=== PATIENT | male | born 1950 | race Caucasian/White ===

== ENCOUNTER 2019-10-25 04:19 | Emergency (ER) | payer OTHER ==
--- OUTSIDE RECORDS SUMMARY | 2019-10-25 04:20 | XMS REPORT ---
:1950 [facility] Address [address] [place] [address] Dr. [address] [place] [id number] Care Team Providers Name Role Phone Unavailable Unavailable Unavailable Problems This patient has no known problems. Allergies, Adverse Reactions, Alerts This patient has no known allergies or adverse reactions. Medications This patient has no known medications.
--- OUTSIDE RECORDS SUMMARY | 2019-10-25 04:21 | XMS REPORT ---
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 and devices Problem Pacemaker Z95.0 Active Problem Obstructive sleep apnea (adult) G47.33 Active (pediatric) Problem Adult general medical exam Z00.00 Active Problem Pneumococcal vaccine administered Z23 Active Problem Sick sinus syndrome I49.5 Active Problem Pure hypercholesterolemia E78.00 Active Medications Medication Code Code Instructions Start End Status Dosage System Date Date Simvastatin ND 92947897514 20MG daily Active TAKE ONE TABLET BY MOUTH AT BEDTIME Lexapro ND 63984300712 10 MG Orally Active 1 tablet Once a day Zyrtec Allergy ND 53056923308 10 MG Orally Active 1 tablet Once a day Results No Known Results Immunizations Vaccine Administration Date FluAD Oct 16, 2019 Summary Purpose eClinicalWorks Submission
--- OUTSIDE RECORDS SUMMARY | 2019-10-25 04:21 | XMS REPORT ---
:1950 Author Organization [employer] Care Team Providers Name Role Phone Johns, Na Provider Role Unavailable Allergies No Known Allergies Problems Problem Type Condition Code Onset Dates Condition Status Problem Allergic rhinitis J30.9 Active Problem Anxiety F41.9 Active Assessment Anxiety F41.9 Active Assessment Pure hypercholesterolemia E78.00 Active Problem Sick sinus syndrome I49.5 Active Problem Pure hypercholesterolemia E78.00 Active Problem Pacemaker Z95.0 Active Problem H/O TIA (transient ischemic attack) Z86.73 Active and stroke Problem Urticaria L50.9 Active Problem Adult general medical exam Z00.00 Active Problem Pneumococcal vaccine administered Z23 Active Medications Medication Code Code Instructions Start End Date Status Dosage System Date Simvastatin ND 69159770332 20MG daily Active TAKE ONE TABLET BY MOUTH AT BEDTIME Lexapro ND 07891393126 10 MG Orally Active 1 tablet Once a day Results No Known Results Summary Purpose eClinicalWorks Submission
--- OUTSIDE RECORDS SUMMARY | 2019-10-25 04:21 | XMS REPORT ---
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 and devices Problem Pacemaker Z95.0 Active Problem Obstructive sleep apnea (adult) G47.33 Active (pediatric) Problem Adult general medical exam Z00.00 Active Problem Pneumococcal vaccine administered Z23 Active Problem Sick sinus syndrome I49.5 Active Problem Pure hypercholesterolemia E78.00 Active Assessment H/O TIA (transient ischemic attack) Z86.73 Active and stroke Assessment Sick sinus syndrome I49.5 Active Assessment 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 machines and devices Assessment Obstructive sleep apnea (adult) G47.33 Active (pediatric) Assessment Anxiety F41.9 Active Assessment Pure hypercholesterolemia E78.00 Active Assessment Pacemaker Z95.0 Active Assessment Perianal itch L29.0 Active Problem Urticaria L50.9 Active Medications Medication Code Code Instructions Start End Status Dosage System Date Date Simvastatin ND 38639936250 20MG daily Active TAKE ONE TABLET BY MOUTH AT BEDTIME Nystatin [facility] 51802335112 [id number] UNIT/GM May 08, Jul 07, Active 1 application Externally 2018 2018 to affected Twice a day area Lexapro ND 37689850352 10 MG Orally Active 1 tablet Once a day Zyrtec Allergy [facility] 53308752521 10 MG Orally Active 1 tablet Once a day Results No Known Results Summary Purpose eClinicalWorks Submission
--- OUTSIDE RECORDS SUMMARY | 2019-10-25 04:21 | XMS REPORT ---
:1950 Author Organization eClinicalWorks Care Team Providers Name Role Phone Lion Nitesh Provider Role Unavailable Allergies No Known Allergies Problems Problem Type Condition Code Onset Dates Condition Status Problem Allergic rhinitis J30.9 Active Problem Anxiety F41.9 Active Problem Sick sinus syndrome I49.5 Active Problem Pure hypercholesterolemia E78.00 Active Problem Pacemaker Z95.0 Active Problem H/O TIA (transient ischemic attack) Z86.73 Active and stroke Problem Urticaria L50.9 Active Problem Adult general medical exam Z00.00 Active Problem Pneumococcal vaccine administered Z23 Active Assessment Sick sinus syndrome I49.5 Active Assessment Pacemaker Z95.0 Active Assessment Anxiety F41.9 Active Assessment H/O TIA (transient ischemic attack) Z86.73 Active and stroke Assessment Pure hypercholesterolemia E78.00 Active Medications Medication Code Code Instructions Start End Status Dosage System Date Date Simvastatin [facility] 84257338423 20MG daily Active TAKE ONE TABLET BY MOUTH AT BEDTIME Zyrtec Allergy ND 34108242324 10 MG Orally Active 1 tablet Once a day Lexapro ND 99076518515 10 MG Orally Active 1 tablet Once a day Results No Known Results Summary Purpose eClinicalWorks Submission
[2019-10-25] MEDS ORDERED: NA CHLORIDE 0.9% 1,000 ML ONE (04:56)
[2019-10-25] MEDS ORDERED: KETOROLAC 30 MG/ML INJ ONE (04:56)
[2019-10-25 05:18] LABS: Absolute Lymphocytes (CBC) 2.4 K/uL (0.7-4.9); Basophils % 0.6 % (0-1.3); Hematocrit 42.8 % (39.6-49.0); Lymphocytes % 42.2 % (15.3-44.8); MPV 9.4 fL (7.6-11.3); RBC Red Blood Cell Count 4.67 M/uL (4.33-5.43)
[2019-10-25 05:36] LABS: Albumin 3.6 g/dL (3.4-5.0); Bilirubin Direct 0.1 mg/dL (0-0.2); Bilirubin Total 0.4 mg/dL (0.2-1.0); Potassium 3.9 mmol/L (3.5-5.1); Protein, Total 6.7 g/dL (6.4-8.2)
[2019-10-25 07:03] LABS: Urine Blood NEGATIVE (NEG); Urine Glucose NEGATIVE (NEG); Urine Protein NEGATIVE (NEG); Urine Specific Gravity 1.025 (1.005-1.030)
[2019-10-25 07:06] LABS: Urine Bacteria <20 /HPF (NONE SEEN); Urine Culture Reflex Order NOT NEEDED; Urine Mucus SLIGHT /HPF (NONE SEEN); Urine RBC <5 /HPF (NONE SEEN)
--- NOTE | 2019-10-25 07:07 | ER ---
Nurse's Notes [facility] Name: Shyann Hardin Age: 68 yrs Sex: Male : 1950 Arrival Date: 10/25/2019 Time: 04:22 Bed 18 Private MD: Diagnosis: acute left lower quandrant abdominal pain Presentation: 10/25 04:36 Presenting complaint: Patient states: left upper and lower quadrant abd pain since 2200 ak1 last night. pt stated he had a very small BM with no relief from the pain. pt stated he has hx diverticulitis. pt denies N/V. pt c/o increased pain at 0330. Transition of care: patient was not received from another setting of care. Onset of symptoms was October 24, 2019. Risk Assessment: Do you want to hurt yourself or someone else? Patient reports no desire to harm self or others. Initial Sepsis Screen: Does the patient meet any 2 criteria? No. Patient's initial sepsis screen is negative. Does the patient have a suspected source of infection? No. Patient's initial sepsis screen is negative. Care prior to arrival: None. 04:36 Method Of Arrival: Ambulatory ak1 04:36 Acuity: AIRAM 3 ak1 Triage Assessment: 04:41 General: Appears in no apparent distress. well groomed, Behavior is calm, cooperative. ak1 Pain: Complains of pain in left upper quadrant and left lower quadrant. Historical: - Allergies: 04:40 PENICILLINS; ak1 - Home Meds: 04:40 escitalopram oxalate 10 mg Oral tab 1 tab once daily [Active]; Vitamin D3 5,000 unit ak1 Oral tab daily [Active]; simvastatin 20 mg Oral tab 1 tab once daily for Hypercholesterolemia [Active]; aspirin 325 mg Oral tab 1 tab once daily [Active]; - PMHx: 04:40 Anxiety; GERD; Sleep Apnea; High Cholesterol; TIA; ak1 04:41 Diverticulitis; ak1 - PSHx: 04:40 Tonsillectomy; Hernia repair; ak1 04:41 pacemaker; ak1 - Immunization history:: Adult Immunizations unknown. - Social history:: Smoking status: Patient/guardian denies using tobacco, Patient uses alcohol, but reports only rare drinking. - Ebola Screening: : No symptoms or risks identified at this time. - Family history:: not pertinent. - Hospitalizations: : No recent hospitalization is reported. Screenin:41 Abuse screen: Denies threats or abuse. Denies injuries from another. Nutritional ak1 screening: No deficits noted. Tuberculosis screening: No symptoms or risk factors identified. Fall Risk None identified. Assessment: 04:30 General: Appears in no apparent distress. comfortable, Behavior is calm, cooperative, cc3 appropriate for age. Pain: Complains of pain in left lower quadrant and left upper quadrant Pain currently is 3 out of 10 on a pain scale. Quality of pain is described as aching, Pain began 1 day ago. Neuro: Level of Consciousness is awake, alert, obeys commands, Oriented to person, place, time, situation, Appropriate for age. Cardiovascular: Denies chest pain, Heart tones S1 S2 present Capillary refill < 3 seconds in bilateral fingers Patient's skin is warm and dry. Respiratory: Airway is patent Respiratory effort is even, unlabored, Respiratory pattern is regular, symmetrical, Breath sounds are clear bilaterally. GI: Abdomen is round non-distended, Bowel sounds present X 4 quads. Abd is soft X 4 quads Abdomen is tender to palpation in left lower quadrant and left upper quadrant. : No signs and/or symptoms were reported regarding the genitourinary system. EENT: No signs and/or symptoms were reported regarding the EENT system. Derm: Skin is intact, is healthy with good turgor, Skin is pink, warm \T\ dry. normal. Musculoskeletal: Circulation, motion, and sensation intact. Range of motion: intact in all extremities. 05:18 Reassessment: Patient appears in no apparent distress at this time. Patient and/or cc3 family updated on plan of care and expected duration. Pain level reassessed. Patient is alert, oriented x 3, equal unlabored respirations, skin warm/dry/pink. 06:20 Reassessment: Patient appears in no apparent distress at this time. Patient and/or cc3 family updated on plan of care and expected duration. Pain level reassessed. Patient is alert, oriented x 3, equal unlabored respirations, skin warm/dry/pink. Patient denies pain at this time. Patient states feeling better. Patient states symptoms have improved. 07:01 Reassessment: Patient appears in no apparent distress at this time. Patient and/or cc3 family updated on plan of care and expected duration. Pain level reassessed. Patient is alert, oriented x 3, equal unlabored respirations, skin warm/dry/pink. 07:05 Reassessment: RECD REPORT FROM DIMPLE AGUILA. 68YO WM P/W LUQ PAIN. ALL CURRENT ORDERS bp COMPLETED, VS STABLE. Vital Signs: 04:36 BP 122 / 90; Pulse 66; Resp 16; Temp 97.5; Pulse Ox 98% on R/A; Weight 81.65 kg (R); ak1 Height 5 ft. 8 in. (172.72 cm) (R); Pain 4/10; 06:30 BP 117 / 74; Pulse 60; Resp 17 S; Pulse Ox 97% on R/A; cc3 07:33 BP 117 / 81; Pulse 59; Resp 16; Temp 98; Pulse Ox 97% ; bp 04:36 Body Mass Index 27.37 (81.65 kg, 172.72 cm) ak1 ED Course: 04:22 Patient arrived in ED. ag3 04:29 Dimple Maharaj is Primary Nurse. cc3 04:38 Triage completed. ak1 04:41 Arm band placed on Patient placed in an exam room, on a stretcher, on pulse oximetry, ak1 Patient notified of wait time. 04:41 Patient has correct armband on for positive identification. Placed in gown. Bed in low ak1 position. Call light in reach. Side rails up X 1. Adult w/ patient. Pulse ox on. NIBP on. 04:44 Inserted saline lock: 20 gauge in right forearm, using aseptic technique. Blood wh collected. 04:48 Levy Carreon MD is Attending Physician. wa 05:10 Radiology exam delayed due to lab results not completed at this time. (BUN/Creatinine). sj 05:55 CT Abd/Pelvis - IV Contrast Only In Process Unspecified. EDMS 07:04 Levy Laws MD is Referral Physician. wa 07:05 Garrick Ac, AYLA is Primary Nurse. bp 07:33 No provider procedures requiring assistance completed. IV discontinued, intact, bp bleeding controlled, No redness/swelling at site. Pressure dressing applied. Administered Medications: 04:55 Drug: TORadol 30 mg Route: IVP; Site: right forearm; cc3 07:33 Follow up: Response: No adverse reaction bp 04:55 Drug: NS 0.9% 1000 ml Route: IV; Rate: 1 bolus; Site: right forearm; cc3 07:35 Follow up: IV Status: Completed infusion; IV Intake: 1000ml bp Intake: 07:35 IV: 1000ml; Total: 1000ml. bp Outcome: 07:06 Discharge ordered by . ted 07:35 Discharged to home ambulatory, with family. bp 07:35 Condition: stable 07:35 Discharge instructions given to patient, Instructed on discharge instructions, follow up and referral plans. medication usage, Demonstrated understanding of instructions, follow-up care, medications, Prescriptions given X 2. 07:36 Patient left the ED. bp Signatures: Dispatcher [employer] EDMS Ronit Meeks Amber RN RN ak1 Judah Elizabeth William, MD MD wa Peltier, Brian, RN RN Dimple Burgess cc3 Marianna Tellez ag3
--- NOTE | 2019-10-25 07:07 | EDPHYS ---
Physician Documentation [facility] Name: Shyann Hardin Age: 68 yrs Sex: Male : 1950 Arrival Date: 10/25/2019 Time: 04:22 Bed 18 Private MD: ED Physician Levy Carreon HPI: 10/25 06:03 This 68 yrs old Male presents to ER via Ambulatory with complaints of wa Abdominal Pain. 06:03 The patient presents with abdominal pain in the left lower quadrant. Onset: The wa symptoms/episode began/occurred last night. The symptoms do not radiate. Associated signs and symptoms: none. The symptoms are described as achy. Modifying factors: The symptoms are alleviated by nothing, the symptoms are aggravated by nothing. Severity of pain: At its worst the pain was mild in the emergency department the pain is unchanged. The patient has experienced a previous episode, h/o diverticulitis. The patient has not recently seen a physician. denies groin or testicular pain. Historical: - Allergies: 04:40 PENICILLINS; ak1 - Home Meds: 04:40 escitalopram oxalate 10 mg Oral tab 1 tab once daily [Active]; Vitamin D3 5,000 unit ak1 Oral tab daily [Active]; simvastatin 20 mg Oral tab 1 tab once daily for Hypercholesterolemia [Active]; aspirin 325 mg Oral tab 1 tab once daily [Active]; - PMHx: 04:40 Anxiety; GERD; Sleep Apnea; High Cholesterol; TIA; ak1 04:41 Diverticulitis; ak1 - PSHx: 04:40 Tonsillectomy; Hernia repair; ak1 04:41 pacemaker; ak1 - Immunization history:: Adult Immunizations unknown. - Social history:: Smoking status: Patient/guardian denies using tobacco, Patient uses alcohol, but reports only rare drinking. - Ebola Screening: : No symptoms or risks identified at this time. - Family history:: not pertinent. - Hospitalizations: : No recent hospitalization is reported. ROS: 06:05 Constitutional: Negative for fever, chills, and weight loss, Eyes: Negative for injury, wa pain, redness, and discharge, ENT: Negative for injury, pain, and discharge, Neck: Negative for injury, pain, and swelling, Cardiovascular: Negative for chest pain, palpitations, and edema, Respiratory: Negative for shortness of breath, cough, wheezing, and pleuritic chest pain, Back: Negative for injury and pain, MS/Extremity: Negative for injury and deformity, Skin: Negative for injury, rash, and discoloration, Neuro: Negative for headache, weakness, numbness, tingling, and seizure, Psych: Negative for depression, anxiety, suicide ideation, homicidal ideation, and hallucinations. 06:05 Abdomen/GI: Positive for abdominal pain, Negative for vomiting, diarrhea. 06:05 : Negative for urinary symptoms, urinary frequency, pelvic pain, testicular pain Exam: 06:05 Constitutional: This is a well developed, well nourished patient who is awake, alert, wa and in no acute distress. Head/Face: Normocephalic, atraumatic. Eyes: Pupils equal round and reactive to light, extra-ocular motions intact. Lids and lashes normal. Conjunctiva and sclera are non-icteric and not injected. Cornea within normal limits. Periorbital areas with no swelling, redness, or edema. ENT: Nares patent. No nasal discharge, no septal abnormalities noted. Tympanic membranes are normal and external auditory canals are clear. Oropharynx with no redness, swelling, or masses, exudates, or evidence of obstruction, uvula midline. Mucous membranes moist. Neck: Trachea midline, no thyromegaly or masses palpated, and no cervical lymphadenopathy. Supple, full range of motion without nuchal rigidity, or vertebral point tenderness. No Meningismus. Cardiovascular: Regular rate and rhythm with a normal S1 and S2. No gallops, murmurs, or rubs. Normal PMI, no JVD. No pulse deficits. Respiratory: Lungs have equal breath sounds bilaterally, clear to auscultation and percussion. No rales, rhonchi or wheezes noted. No increased work of breathing, no retractions or nasal flaring. Back: No spinal tenderness. No costovertebral tenderness. Full range of motion. Male : Normal genitalia with no discharge or lesions. Skin: Warm, dry with normal turgor. Normal color with no rashes, no lesions, and no evidence of cellulitis. MS/ Extremity: Pulses equal, no cyanosis. Neurovascular intact. Full, normal range of motion. Neuro: Awake and alert, GCS 15, oriented to person, place, time, and situation. Cranial nerves II-XII grossly intact. Motor strength 5/5 in all extremities. Sensory grossly intact. Cerebellar exam normal. Normal gait. Psych: Awake, alert, with orientation to person, place and time. Behavior, mood, and affect are within normal limits. 06:05 Abdomen/GI: Inspection: abdomen appears normal, Bowel sounds: normal, Palpation: soft, in all quadrants, mild abdominal tenderness, in the left lower quadrant. 06:05 : Male external genitalia: normal, no discharge, no swelling, no tenderness, Bladder: is normal, non-distended. Vital Signs: 04:36 BP 122 / 90; Pulse 66; Resp 16; Temp 97.5; Pulse Ox 98% on R/A; Weight 81.65 kg (R); ak1 Height 5 ft. 8 in. (172.72 cm) (R); Pain 4/10; 06:30 BP 117 / 74; Pulse 60; Resp 17 S; Pulse Ox 97% on R/A; cc3 07:33 BP 117 / 81; Pulse 59; Resp 16; Temp 98; Pulse Ox 97% ; bp 04:36 Body Mass Index 27.37 (81.65 kg, 172.72 cm) ak1 MDM: 04:48 Patient medically screened. wa 06:06 Differential diagnosis: will r/op acute diverticulitis. pain control. pain med. CT. wa reassess. 06:58 Data reviewed: vital signs, nurses notes, lab test result(s), radiologic studies. Test wa interpretation: by ED physician or midlevel provider: labs noted within nml limits. UA negative. 06:59 Test interpretation: by ED physician or midlevel provider: CT abd pelvis: noted for wa diverticulosis. no diverticulitis. Response to treatment: the patient's symptoms have resolved after treatment. ED course: pain resolved. In a shared decision-making, pt opted for script to hold and take if pain persists. In case this is early diverticulitis and the scan has just not caught up with the infection. will script and advise GI f/u.. 10/25 04:49 Order name: Basic Metabolic Panel la 10/25 04:49 Order name: CBC with Diff 10/25 04:49 Order name: Hepatic Function; Complete Time: 06:07 10/25 04:49 Order name: Lipase; Complete Time: 06:07 10/25 04:49 Order name: Urine Microscopic Only la 10/25 04:50 Order name: Basic Metabolic Panel; Complete Time: 06:07 [facility] 10/25 04:49 Order name: IV Saline Lock; Complete Time: 04:52 la 10/25 04:49 Order name: Labs collected and sent; Complete Time: 04:52 la 10/25 04:49 Order name: Urine Dipstick-Ancillary (obtain specimen); Complete Time: 06:25 la 10/25 04:50 Order name: CT Abd/Pelvis - IV Contrast Only la 10/25 04:50 Order name: CBC with Automated Diff; Complete Time: 06:07 [facility] 10/25 06:08 Order name: Urine Dipstick--Ancillary (enter results) mw2 Administered Medications: 04:55 Drug: TORadol 30 mg Route: IVP; Site: right forearm; cc3 07:33 Follow up: Response: No adverse reaction bp 04:55 Drug: NS 0.9% 1000 ml Route: IV; Rate: 1 bolus; Site: right forearm; cc3 07:35 Follow up: IV Status: Completed infusion; IV Intake: 1000ml bp Disposition: 10/25/19 07:06 Discharged to Home. Impression: acute left lower quandrant abdominal pain. - Condition is Stable. - Prescriptions for Ibuprofen 600 mg Oral Tablet - take 1 tablet by ORAL route every 8 hours As needed take with food; 30 tablet. moxifloxacin 400 mg Oral tablet - take 1 tablet by ORAL route once daily; 7 tablet. - Medication Reconciliation Form, Thank You Letter, Antibiotic Education, Prescription Opioid Use form. - Follow up: Levy Laws MD; When: 2 - 3 days; Reason: Recheck today's complaints. - Problem is new. - Symptoms have improved. - Notes: begin taking the medication if pain persists. see the gastro doctor for further evaluation. return here immediately for rapidly worsening concerns for re-evaluation. you may choose to not take the antibiotics if this pain does not return as discussed with you. Signatures: Dispatcher [employer] EDMalissa Jenkins, RN RN ak1 Levy Carreon MD MD wa Peltier, Brian, RN RN Dimple Burgess cc3 Corrections: (The following items were deleted from the chart) 07:36 07:06 10/25/2019 07:06 Discharged to Home. Impression: acute left lower quandrant bp abdominal pain. Condition is Stable. Forms are Medication Reconciliation Form, Thank You Letter, Antibiotic Education, Prescription Opioid Use. Follow up: Levy Laws; When: 2 - 3 days; Reason: Recheck today's complaints. Problem is new. Symptoms have improved. wa
--- NOTE | 2019-10-25 10:28 | RAD REPORT ---
EXAM DESCRIPTION: CT Abdomen and Pelvis With Intravenous Contrast CLINICAL HISTORY: The patient is 68 years old and is Male; left lower quad abd pain TECHNIQUE: Axial computed tomography images of the abdomen and pelvis with intravenous contrast. S agittal and coronal reformatted images were created and reviewed. This CT exam was performed using one or more of the following dose reduction techniques: automated exposure control, adjustment of t he mA and/or kV according to patient size, and/or use of iterative reconstruction technique. COMPARISON: No relevant prior studies available. FINDINGS: Lung bases: Unremarkable. No mass. No consolidation. ABDOMEN: Liver: Unremarkable. No mass. Gallbladder and bile ducts: Unremarkable. No calcified stones. No ductal dilation. Pancreas: Unremarkable. No mass. No ductal dilation. Spleen: Unremarkable. No splenomegaly. Adrenals: Unremarkable. No mass. Kidneys and ureters: Unremarkable. No solid mass. No hydronephrosis. Stomach and bowel: Colonic diverticulosis without evidence of diverticulitis. No obstruction. PELVIS: Appendix: No findings to suggest acute appendicitis. Bladder: Mild bladder wall thickening may be secondary to underdistention, chronic outlet obstru ction or infectious cystitis. Reproductive: Unremarkable as visualized. ABDOMEN and PELVIS: Intraperitoneal space: Unremarkable. No free air. No significant fluid collection. Bones/joints: No acute fracture. No dislocation. Soft tissues: Small fat-containing right inguinal hernia. Vasculature: Unremarkable. No abdominal aortic aneurysm. Lymph nodes: Unremarkable. No enlarged lymph nodes. IMPRESSION: 1. Mild bladder wall thickening may be secondary to underdistention, chronic outlet ob struction or infectious cystitis. Otherwise no other acute abnormalities seen. 2. Colonic diverticulosis without evidence of diverticulitis. Electronically signed by: Jose De Jesus Hyde MD 10/25/2019 6:34 AM LATHE TURNER Due to temporary technical issues with the PACS/Fluency reporting system, reports are being signed by the in house radiologist as a courtesy to ensure prompt reporting. The interpreting radiologist is f leelaly responsible for the content of the report.
[2019-10-25 10:57] VITALS: O2SAT 97
[2019-10-25 10:59] VITALS: BP 117/81; TEMP 98
== END 2019-10-25 07:36 | disposition home or self-care (01) ==
LOC: ER 04:19
DX: R10.32 Left lower quadrant pain (principal); E78.00 Pure hypercholesterolemia, unspecified; F41.9 Anxiety disorder, unspecified; Z88.0 Allergy status to penicillin; Z95.0 Presence of cardiac pacemaker
CPT/HCPCS: 96361; 85025; 80048; 36415; 80076; 83690; 74177; 96374; 99284; Q9967; J7030; 81003; 81015

== ENCOUNTER 2021-09-29 15:48 | Emergency (ER) | payer OTHER ==
--- OUTSIDE RECORDS SUMMARY | 2021-09-29 15:51 | XMS REPORT | Continuity of Care Document ---
:1950 Author Organization [facility] t Address [address] [place] [address] Care Team Providers Name Role Phone MANDA Attending Clinician Unavailable CHERI Attending Clinician Unavailable CHERRI Attending Clinician Unavailable TIFFANIE ODONNELL Attending Clinician Unavailable TIFFANIE ODONNELL Attending Clinician Unavailable Payers Payer Name Policy Type Policy Number Effective Date Expiration Date S brayden [employer] CHOICE [id number] 2018 00:00:00 Problems This patient has no known problems. Allergies, Adverse Reactions, Alerts Allergy Allergy Status Severity Reaction(s) Onset Inactive Treating Comm ents Source Name Type Date Date Clinician PENICILL Drug Active ITCHING 2017-11 Univers INS Class 0-19 ity of 00:00: [address] PCN Adverse Active Info Not [facility] Reaction Available [facility] ent Clinics Medications Ordered Filled Start Stop Current Ordering Indication Dosage Frequency Signature Comments Components Source Medication Medication Date Date Medication? Clinician (SIG) Name Name Simvastatin Simvastatin Yes Na Johns TAKE ONE [facility] Lexapro Lexapro Yes Na Johns [address] [facility] Zyrte Zyrte Yes Na Johns [address] [facility] Allergy Allergy [facility] ent Clinics Immunizations Ordered Filled Immunization Date Status Comments Sourc e Immunization Name Name FluAD FluAD 2019-10-[address] [facility] - 00:[facility]:00 [facility] Prevnar 13 Prevnar 13 2018-03-[address] [facility] - -Pneumonia Vaccine -Pneumonia Vaccine 00:00:00 [facility] Procedures This patient has no known procedures. Encounters Start End Encounter Admission Attending Care Care Encounter Source Date/Time Date/Time Type Type Clinicians Facility Department ID 2022-02-23 2022-02-23 Outpatient Ryan HOLMAN [facility] [id number] Univers 13:40:00 13:40:00 CINDI [id number] ity o f [facility] 2021-07-28 2021-07-28 Outpatient R CHERI [facility] [id number] Univers 14:45:00 14:45:00 SCOTT [id number] ity [facility] 2021-07-28 2021-07-28 Outpatient Ryan ALONZO [facility] [id number] Univers 14:40:00 14:40:00 SCOTT ity [facility] 2021-06-04 2021-06-04 Outpatient [facility]MLC [facility] [id number] [facility] 2021-03-27 2021-03-27 Outpatient R CHERRI [facility] [id number] Univers 09:30:00 09:30:00 SHO [id number] [facility] 2021-03-27 2021-03-27 Outpatient R CHERRI [facility] [id number] Univers 09:30:00 09:30:00 SHO [facility] 2021-03-26 2021-03-26 Outpatient R [facility] [id number] Univers 12:00:00 12:00:00 [id number] ity [facility] 2021-03-24 2021-03-24 Outpatient R [facility] [id number] Univers 13:40:00 13:40:00 [id number] ity [facility] 2021-03-24 2021-03-24 Outpatient R [facility] [id number] Univers 13:40:00 13:40:00 ity [facility] 2021-03-24 2021-03-24 Outpatient R CHERI [facility] [id number] Univers 13:30:00 13:30:00 SCOTT ity [facility] 2021-03-09 2021-03-09 Outpatient R MANDA, [facility] [id number] Univers 09:40:00 09:40:00 CINDI [id number] ity o f [facility] 2021-03-09 2021-03-09 Outpatient R MANDA, [facility] [id number] Univers 09:40:00 09:40:00 CINDI ravi o f [facility] 2021-03-02 2021-03-02 Outpatient R BLAS PERLA [facility] [id number] Univers 13:00:00 13:00:00 PERLA ODONNELL [id number] [facility] 2021-03-02 2021-03-02 Outpatient Ryan BLAS PERLA [facility] [id number] Univers 13:00:00 13:00:00 PERLA ODONNELL [facility] 2021-01-17 2021-01-17 Outpatient [facility] [id number] Univers 10:45:00 10:45:00 [facility] 2020-12-20 2020-12-20 Outpatient [facility] [id number] Univers 10:40:00 10:40:00 [facility] 2020-12-17 2020-12-17 Outpatient [facility] [id number] [facility] 2020-12-02 2020-12-02 Outpatient [facility] [id number] [facility] 2020-10-21 2020-10-21 Outpatient [facility] [id number] [facility] 2020-09-23 2020-09-23 Outpatient R [facility] [id number] Univers 13:30:00 13:30:00 ity [facility] 2020-09-23 2020-09-23 Outpatient R [facility] [id number] Univers 13:30:00 13:30:00 ity [facility] 2020-09-05 2020-09-05 Outpatient [facility] [id number] Univers 09:00:00 09:00:00 [id number] ity of [facility] 2020-05-20 2020-05-20 [facility] [id number] 04:10:00 04:10:00 t [employer] [facility] 2020-05-13 2020-05-13 [facility] [id number] 10:40:00 10:40:00 t [employer] [facility] 2020-05-09 2020-05-09 Outpatient R [facility] [id number] Univers 09:15:00 09:15:00 [id number] ity of [facility] 2020-05-09 2020-05-09 Outpatient R [facility] [id number] Univers 09:15:00 09:15:00 ity [facility] 2020-04-09 2020-04-09 [facility] [id number] 16:45:00 16:45:00 [facility] Out[facility] Clin[facility] 2020-03-07 2020-03-07 Outpatient R [facility] [id number] Univers 09:00:00 09:00:00 [id number] ity of [facility] 2020-03-05 2020-03-05 Outpatient R MANDA, [facility] [id number] Univers 10:00:00 10:00:00 CINDI [id number] ity o f [facility] 2020-03-05 2020-03-05 Outpatient R MANDA, [facility] [id number] Univers 10:00:00 10:00:00 CINDI maldonadoy o f [facility] 2019-11-05 2019-11-05 [facility] [id number] 17:28:00 17:28:00 t [employer] [facility] Clin[facility] 2019-10-31 2019-10-31 [facility] [id number] 10:00:00 10:00:00 t [employer] [facility] 2019-10-16 2019-10-16 [facility] [id number] 10:00:00 10:00:00 t [employer] [facility] [place] [facility] Clin[facility] 2019-05-08 2019-05-08 [facility] [id number] 16:40:00 16:40:[address] [employer] [facility] [place] [facility] 2019-01-30 2019-01-30 [facility] [id number] 09:51:00 09:51:00 t [employer] [facility] [employer] [place] [facility] 2018-11-17 2018-11-17 [facility] [id number] 10:30:00 10:30:[address] [employer] [facility] [place] [facility] 2018-04-11 2018-04-11 [facility] [id number] 14:03:00 14:03:[address] [employer] [facility] [place] [facility] 2018-03-20 2018-03-20 [facility] [id number] 15:15:00 15:15:00 t [employer] [place] [facility] Results This patient has no known results.
--- NOTE | 2021-09-29 16:52 | RAD REPORT ---
EXAM DESCRIPTION: RAD - Foot Left 3 View - 09/29/2021 4:45 pm CLINICAL HISTORY: SWELLING COMPARISON: No comparisons FINDINGS: No acute fracture. No malalignment. No significant focal degenerative changes. IMPRESSION: No acute osseous abnormality involving the left foot.
--- NOTE | 2021-09-29 17:45 | EDPHYS ---
Physician Documentation [facility] Name: Shyann Hardin Age: 70 yrs Sex: Male : 1950 Arrival Date: 09/29/2021 Time: 16:19 Bed DX3 Private MD: ED Physician Geovany Elmore HPI: 09/29 17:42 This 70 yrs old Male presents to ER via Ambulatory with complaints of Foot rn Injury. 17:42 The patient presents with a crush injury, from a heavy object, an injury. The rn complaints affect the left foot. Onset: The symptoms/episode began/occurred today. Modifying factors: The symptoms are alleviated by elevation of extremity, the symptoms are aggravated by weight bearing, movement. Associated signs and symptoms: Pertinent positives: swelling, Pertinent negatives: fever, warmth, weakness. Severity of symptoms: At their worst the symptoms were mild, in the emergency department the symptoms have improved. The patient has not experienced similar symptoms in the past. The patient has not recently seen a physician. Patient reports dropped heavy object from tractor onto left foot. Reports mild swelling and mild pain about a 3 out of 10. Reports pain not terrible but just wanted to make sure was not broken. No other injuries. No open wounds.. Historical: - Allergies: 16:20 PENICILLINS; ll1 - PMHx: 16:20 Anxiety; Diverticulitis; GERD; High Cholesterol; Sleep Apnea; TIA; ll1 - PSHx: 16:20 hernia repair; pacemaker; ll1 - Immunization history:: Client reports receiving the 2nd dose of the Covid vaccine. - Social history:: Smoking status: Patient denies any tobacco usage or history of. - Family history:: not pertinent. - Hospitalizations: : No recent hospitalization is reported. ROS: 17:42 Constitutional: Negative for fever, chills, and weight loss, MS/Extremity: Positive for rn injury and swelling to left foot Skin: Positive bruising to left foot Neuro: Negative for numbness or tingling to left foot Exam: 17:42 Constitutional: This is a well developed, well nourished patient who is awake, alert, rn and in no acute distress. MS/ Extremity: Pulses equal, no cyanosis. Neurovascular intact. Full, normal range of motion. Mild swelling and ecchymosis to medial and distal left foot and great toe. No open wounds. Foot is soft. Vital Signs: 16:19 BP 118 / 72; Pulse 71; Resp 16; Temp 98.1; Pulse Ox 96% on R/A; Weight 79.38 kg; Height ll1 5 ft. 8 in. (172.72 cm); Pain 4/10; 16:19 Body Mass Index 26.61 (79.38 kg, 172.72 cm) ll1 MDM: 17:37 Patient medically screened. rn 17:42 Differential diagnosis: fracture. Data reviewed: vital signs, nurses notes, radiologic rn studies, plain films, and as a result, I will discharge patient. Test interpretation: by ED physician or midlevel provider: plain radiologic studies, X-ray left foot negative for fracture. Counseling: I had a detailed discussion with the patient and/or guardian regarding: the historical points, exam findings, and any diagnostic results supporting the discharge/admit diagnosis, radiology results, the need for outpatient follow up, to return to the emergency department if symptoms worsen or persist or if there are any questions or concerns that arise at home. Special discussion: I discussed with the patient/guardian in detail that at this point there is no indication for admission to the hospital. It is understood, however, that if the symptoms persist or worsen the patient needs to return immediately for re-evaluation. 09/29 16:22 Order name: Foot Left 3 View XRAY; Complete Time: 17:38 ll1 Administered Medications: No medications were administered Disposition Summary: 09/29/21 17:45 Discharge Ordered Location: Home rn Problem: new rn Symptoms: have improved rn Condition: Stable rn Diagnosis - Contusion of left foot rn Followup: rn - With: Private Physician - When: As needed - Reason: Recheck today's complaints, Re-evaluation by your physician Discharge Instructions: - Discharge Summary Sheet rn - Foot Contusion rn Forms: - Medication Reconciliation Form rn - Thank You Letter rn - Antibiotic heel turner - Prescription Opioid Use rn Signatures: Dispatcher [employer] EDGeovany Brock MD MD rn Lewis, Lynsay, RN RN ll1 Corrections: (The following items were deleted from the chart) 17:43 17:42 Constitutional: Negative for fever, chills, and weight loss, MS/Extremity: rn Positive for injury and swelling to left foot Skin: Positive bruising to left foot rn
--- NOTE | 2021-09-29 17:45 | ER ---
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 Gait steady. Coronavirus screen: Vaccine status: Patient reports receiving the 2nd dose of the covid vaccine. Client denies travel out of the [place] in the last 14 days. At this time, the client does not indicate any symptoms associated with coronavirus-19. Ebola Screen: Patient denies travel to an Ebola-affected area in the 21 days before illness onset. Initial Sepsis Screen: Does the patient meet any 2 criteria? No. Patient's initial sepsis screen is negative. Does the patient have a suspected source of infection? No. Patient's initial sepsis screen is negative. Risk Assessment: Do you want to hurt yourself or someone else? Patient reports no desire to harm self or others. Onset of symptoms was September 29, 2021. 16:19 Method Of Arrival: Ambulatory ll1 16:19 Acuity: AIRAM 4 ll1 Historical: - Allergies: 16:20 PENICILLINS; ll1 - PMHx: 16:20 Anxiety; Diverticulitis; GERD; High Cholesterol; Sleep Apnea; TIA; ll1 - PSHx: 16:20 hernia repair; pacemaker; ll1 - Immunization history:: Client reports receiving the 2nd dose of the Covid vaccine. - Social history:: Smoking status: Patient denies any tobacco usage or history of. - Family history:: not pertinent. - Hospitalizations: : No recent hospitalization is reported. Screenin:40 Abuse screen: Denies threats or abuse. Denies injuries from another. Nutritional ss screening: No deficits noted. Tuberculosis screening: Never had TB. Fall Risk None identified. Assessment: 17:40 General: Appears in no apparent distress. comfortable, Behavior is calm, cooperative, ss Denies fever, feeling ill, fatigue, chills. Pain: Complains of pain in left first toe Pain currently is 5 out of 10 on a pain scale. Quality of pain is described as tender. Neuro: Level of Consciousness is awake, alert, obeys commands, Oriented to person, place, time, situation. Cardiovascular: Pulses are palpable in right dorsalis pedis artery and left dorsalis pedis artery. Respiratory: Airway is patent Respiratory effort is even, unlabored, Respiratory pattern is regular, symmetrical. Derm: Skin is pink, warm \T\ dry. normal. Musculoskeletal: Swelling present in left first toe. Vital Signs: 16:19 BP 118 / 72; Pulse 71; Resp 16; Temp 98.1; Pulse Ox 96% on R/A; Weight 79.38 kg; Height ll1 5 ft. 8 in. (172.72 cm); Pain 4/10; 16:19 Body Mass Index 26.61 (79.38 kg, 172.72 cm) ll1 ED Course: 16:19 Patient arrived in ED. ll1 16:20 Triage completed. ll1 16:21 Arm band placed on Patient placed in an exam room, on a stretcher. ll1 16:45 Foot Left 3 View XRAY In Process Unspecified. EDMS 17:37 Geovany Elmore MD is Attending Physician. rn 17:39 Josefa Fraser, AYLA is Primary Nurse. ss 17:40 Patient has correct armband on for positive identification. Bed in low position. Call ss light in reach. 17:40 No provider procedures requiring assistance completed. Patient did not have IV access ss during this emergency room visit. Administered Medications: No medications were administered Outcome: 17:45 Discharge ordered by . rn 17:49 Discharged to home ambulatory. ss 17:49 Condition: good 17:49 Discharge instructions given to patient, Instructed on discharge instructions, follow up and referral plans. Demonstrated understanding of instructions, follow-up care. 17:50 Patient left the ED. ss Signatures: Dispatcher [employer] EDKY Geovany Elmore MD MD rn Smirch, Shelby, RN RN ss Lewis, Lynsay, RN RN ll1
[2021-09-29 18:30] VITALS: BP 118/72; TEMP 98.1; O2SAT 96
== END 2021-09-29 17:50 | disposition home or self-care (01) ==
LOC: ER 15:48
DX: S90.32XA Contusion of left foot, initial encounter (principal); I10 Essential (primary) hypertension; Z88.0 Allergy status to penicillin; Z95.0 Presence of cardiac pacemaker
CPT/HCPCS: 99283

== ENCOUNTER 2023-05-27 09:32 | Emergency (ER) | payer OTHER ==
--- OUTSIDE RECORDS SUMMARY | 2023-05-27 09:45 | XMS REPORT | Continuity of Care Document ---
:1950 Author Organization [facility] t Address [address] [place] [address] [address] [place] [address] Care Team Providers Name Role Phone RODRIGUEZ, ROSA ISELA Primary Care Physician Unavailable Ronnell Seymour Attending Clinician Unavailable Rosa Isela Rodriguez L Attending Clinician Unavailable DANA HOLMAN Attending Clinician Unavailable SCOTT ALONZO Attending Clinician Unavailable Dana Holman MD Attending Clinician Doctor Unassigned, [place] Attending Clinician Unavailable SHO HARLEY Attending Clinician Unavailable PERLA ODONNELL Attending Clinician Unavailable PERLA ODONNELL Attending Clinician Unavailable RONNELL SEYMOUR Admitting Clinician Unavailable SCOTT ALONZO Admitting Clinician Unavailable DANA HOLMAN Admitting Clinician Unavailable Payers Payer Name Policy Type Policy Number Effective Date Expiration Date S brayden [place] [id number] 2021 HEALTHCARE 00:00:00 [facility] [id number] Common HEALTHCARE [facility] HUMANA MEDICARE C1 [id number] 2018 Common 00:00:00 [facility] Problems Condition Condition Condition Status Onset Resolution Last Treating Co mments Source Name Details Category Date Date Treatment Clinician Date No known No known Disease Unive rs active active ity of problems problems [facility] Urticaria Urticaria Problem Com mon [facility] Allergic Allergic Problem Commo n rhinitis rhinitis [facility] Anxiety Anxiety Problem Common [facility] Requires Pneumococc Problem Com mon vaccinatio al vaccine Sp oumar n administer - [facility] ed [facility] History of H/O TIA Problem Comm on cerebrovas (transient Sp oumar cular ischemic - [facility]I accident attack) without and stroke [facility] Medical [facility] [id number] Sick sinus Problem Com mon syndrome [facility] [id number] Pacemaker Problem Com mon [facility] Dependence Dependence Problem C ommon on on other [facility] enabling enabling [facility] machine or machines device 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 Sp oumar sm - [facility] [id number] Encounter Problem Com mon for Spirit prostate - [facility] cancer [facility] Obstructiv Obstructiv Problem C ommon e sleep e sleep Spirit apnea apnea - [facility] syndrome (adult) (pediatric [facility] ) [facility] Allergies, Adverse Reactions, Alerts Allergy Allergy Status Severity Reaction(s) Onset Inactive Treating Comm ents Source Name Type Date Date Clinician Penicill Propensi Active Itching 2017-11 Unive rs ins ty to 0-19 ity of adverse 00:00: [place] reaction 00 Medical s Branch PENICILL Drug Active ITCHING 2017-11 Univers INS Class 0-19 ity of 00:00: [place] 00 Medical Branch Penicill Propensi Active Itching 2017-11 Unive rs ins ty to 0-19 ity of adverse 00:00: [place] reaction 00 Medical s Branch Penicill Propensi Active Method i ins ty to 9-15 st adverse 00:00: Hospita reaction 00 l s to drug 0 Drug Active Unknown Common allergy [facility] Family History Family Member Diagnosis Comments Start Date Stop Date Source Paternal grandfather [facility] Paternal grandmother Colon cancer [facility] father [facility] Natural father Hypertension [facility] Maternal grandfather [facility] Maternal grandmother Diabetes [facility] Natural mother Heart disease [facility] Natural [facility] Social History Social Habit Start Date Stop Date Quantity Comments Source History of Tobacco [facility] Use [facility] Gender identity [facility] Sexual orientation [facility] Exposure to 2023-02-14 2023-02-[address] [facility]-CoV-2 (event) 00:00:00 09:39:00 [facility] Tobacco use and 2023-02-24 2023-02-24 Smokeless Universit y of exposure 00:00:00 00:00:00 tobacco non-user [facility] Alcohol intake 2017-07-26 2017-07-26 Current Islam 00:00:00 00:00:00 non-drinker of Hospital alcohol (finding) History of Social 2017-05-15 2017-05-[address] function 00:00:00 00:00:00 Hospital Sex [birth year] Islam 00:00:00 00:00:00 Hospital Smoking Status Start Date Stop Date Source Never smoked tobacco [facility] Medications Ordered Filled Start Stop Current Ordering Indication Dosage Frequency Signature Comments Components Source Medication Medication Date Date Medication? Clinician (SIG) Name Name Scopolamine Scopolamine 2021-11- No Scopolamin 1 MG/3DAYS 1 MG/3DAYS 0-05 09-17 e 1 00:00: 00:00 MG/3DAYS 00 :00 Scopolamine Scopolamine 2021-11- No Scopolamin 1 MG/3DAYS 1 MG/3DAYS 0-05 09-17 e 1 00:00: 00:00 MG/3DAYS 00 :00 Scopolamine Scopolamine 2021-11- No Scopolamin 1 MG/3DAYS 1 MG/3DAYS 0-05 09-17 e 1 00:00: 00:00 MG/3DAYS 00 :00 cetirizine 2020-0 Yes 10mg Take 10 mg U nivers (ZYRTEC) 10 4-26 by mouth ity of mg tablet 09:35: [place] [address] [place] [address] Branch cetirizine 2020- Yes 10mg Take 10 mg U nivers (ZYRTEC) 10 4-26 by mouth ity of mg tablet 09:35: as needed. [address] cetirizine 2020-0 Yes 10mg Take 10 mg U nivers (ZYRTEC) 10 4-26 by mouth ity of mg tablet 09:35: as needed. [address] cetirizine 2020-0 Yes 10mg Take 10 mg U nivers (ZYRTEC) 10 4-26 by mouth ity of mg tablet 09:35: as needed. [address] cetirizine 2020-0 Yes 10mg Take 10 mg U nivers (ZYRTEC) 10 4-26 by mouth ity of mg tablet 09:35: as needed. [address] cetirizine 2020-0 Yes 10mg Take 10 mg U nivers (ZYRTEC) 10 4-26 by mouth ity of mg tablet 09:35: as needed. [address] ibuprofen 2020-0 Yes 200mg Take 200 Uni vers 200 mg 4-19 mg by ity of tablet 13:26: mouth [place] 09 every 6 Medical (six) Branch hours as needed. ibuprofen 2020-0 Yes 200mg Take 200 Uni vers 200 mg 4-19 mg by ity of tablet 13:26: mouth [place] 09 every 6 Medical (six) Branch hours as needed. ibuprofen 2020-0 Yes 200mg Take 200 Uni vers 200 mg 4-19 mg by ity of tablet 13:26: mouth [place] 09 every 6 Medical (six) Branch hours as needed. ibuprofen 2020-0 Yes 200mg Take 200 Uni vers 200 mg 4-19 mg by ity of tablet 13:26: mouth [place] 09 every 6 Medical (six) Branch hours as needed. ibuprofen 202-0 Yes 200mg Take 200 Uni vers 200 mg 4-19 mg by ity of tablet 13:26: mouth [place] 09 every 6 Medical (six) Branch hours as needed. ibuprofen 2021-0 Yes 200mg Take 200 Uni vers 200 mg 4-19 mg by ity of tablet 13:26: mouth [place] 09 every 6 Medical (six) Branch hours as needed. escitalopra 2020-0 Yes 10mg Take 10 mg Univers m oxalate 4-19 by mouth ity of 10 mg 13:22: daily. [place] tablet 13 [facility] Branch aspirin 81 2020-0 Yes 81mg Take 81 mg U nivers mg chewable 4-19 by mouth ity of tablet 13:22: daily. [address] Cholecalcif 0 Yes Take by Uni vers brianne, 4-19 mouth ity of Vitamin D3, 13:22: daily. [place] (VITAMIN 13 Medical D3) 5,000 Branch unit tablet escitalopra Yes 10mg Take 10 mg Univers m oxalate 4-19 by mouth ity of 10 mg 13:22: daily. [place] tablet 13 [facility] Branch aspirin 81 0 Yes 81mg Take 81 mg U nivers mg chewable 4-19 by mouth ity of tablet 13:22: daily. [address] Cholecalcif Yes Take by Uni vers brianne, 4-19 mouth ity of Vitamin D3, 13:22: daily. [place] (VITAMIN 13 Medical D3) 5,000 Branch unit tablet escitalopra Yes 10mg Take 10 mg Univers m oxalate 4-19 by mouth ity of 10 mg 13:22: daily. [address] aspirin 81 0 Yes 81mg Take 81 mg U nivers mg chewable 4-19 by mouth ity of tablet 13:22: daily. [address] Cholecalcif Yes Take by Uni vers brianne, 4-19 mouth ity of Vitamin D3, 13:22: daily. [place] (VITAMIN 13 Medical D3) 5,000 Branch unit tablet escitalopra Yes 10mg Take 10 mg Univers m oxalate 4-19 by mouth ity of 10 mg 13:22: daily. [facility] 13 [facility] aspirin 81 0 Yes 81mg Take 81 mg U nivers mg chewable 4-19 by mouth ity of tablet 13:22: daily. [address] Cholecalcif 0 Yes Take by Uni vers brianne, 4-19 mouth ity of Vitamin D3, 13:22: daily. [place] (VITAMIN 13 Medical D3) 5,000 Branch unit tablet escitalopra Yes 10mg Take 10 mg Univers m oxalate 4-19 by mouth ity of 10 mg 13:22: daily. [facility] 13 [facility] aspirin 81 0 Yes 81mg Take 81 mg U nivers mg chewable 4-19 by mouth ity of tablet 13:22: daily. [address] Cholecalcif Yes Take by Uni vers brianne, 4-19 mouth ity of Vitamin D3, 13:22: daily. [place] (VITAMIN 13 Medical D3) 5,000 Branch unit tablet escitalopra Yes 10mg Take 10 mg Univers m oxalate 03-02 by mouth ity of 10 mg 13:22: daily. [facility] 13 [facility] aspirin 81 Yes 81mg Take 81 mg U nivers mg chewable 03-02 by mouth ity of tablet 13:22: daily. [address] Cholecalcif Yes Take by Uni vers brianne, 4-19 mouth ity of Vitamin D3, 13:22: daily. [place] (VITAMIN 13 Medical D3) 5,000 Branch unit tablet simvastatin 2017-11 Yes 20mg Take 1 Univ ers 20 mg 0-19 tablet by ity of tablet 00:00: mouth at [place] [address] bedtime. [facility] Branch simvastatin 2017-11 Yes 20mg Take 1 Univ ers 20 mg 0-19 tablet by ity of tablet 00:00: mouth at [place] [address] bedtime. [facility] Branch simvastatin 2017-11 Yes 20mg Take 1 Univ ers 20 mg 0-19 tablet by ity of tablet 00:00: mouth at [place] [address] bedtime. [facility] Branch simvastatin 2017-11 Yes 20mg Take 1 Univ ers 20 mg 0-19 tablet by ity of tablet 00:00: mouth at [place] [address] bedtime. [facility] Branch simvastatin 2017-11 Yes 20mg Take 1 Univ ers 20 mg 0-19 tablet by ity of tablet 00:00: mouth at [place] [address] bedtime. [facility] Branch simvastatin 2017-11 Yes 20mg Take 1 Univ ers 20 mg 0-19 tablet by ity of tablet 00:00: mouth at [place] [address] bedtime. [facility] Branch cholecalcif Yes 1000U QD Take 1,000 Methodi brianne, 9-[address] vitamin D3, 11:23: mouth Hospi ta (cholecalci 15 daily. l ferol) 1,000 unit tablet aspirin Yes 81mg QD Take 81 mg Meth tone (ECOTRIN) 9-[address] 81 MG 11:22: daily. Hospita enteric 22 l coated tablet escitalopra Yes Method i m (LEXAPRO) 6-13 st 10 MG 00:00: Hospita tablet 00 l Simvastatin Simvastatin Yes Na Rodriguez TAKE ONE Common TABLET BY Spirit MOUTH AT - [facility] BEDTIME [facility] Lexapro Lexapro Yes Na Rodriguez 1 tablet Co mmon [facility] Zyrtec Zyrtec Yes Na Rodriguez 1 tablet Comm on Allergy Allergy [facility] Lexapro 10 Lexapro 10 No 1{table QD Lexapro 10 MG MG t} MG Simvastatin Simvastatin No QD Simvastati 20MG 20MG n 20MG Simvastatin Simvastatin No Simvastati 20 MG 20 MG n 20 MG ZyrTEC ZyrTEC No 1{table QD ZyrTEC Allergy 10 Allergy 10 t} Allergy 10 MG MG MG Escitalopra Escitalopra No Escitalopr m Oxalate m Oxalate am Oxalate 10 MG 10 MG 10 MG Lexapro 10 Lexapro 10 No 1{table QD Lexapro 10 MG MG t} MG Simvastatin Simvastatin No Simvastati 20 MG 20 MG n 20 MG ZyrTEC ZyrTEC No 1{table QD ZyrTEC Allergy 10 Allergy 10 t} Allergy 10 MG MG MG Simvastatin Simvastatin No QD Simvastati 20MG 20MG n 20MG ZyrTEC ZyrTEC No 1{table QD ZyrTEC Allergy 10 Allergy 10 t} Allergy 10 MG MG MG Lexapro 10 Lexapro 10 No 1{table QD Lexapro 10 MG MG t} MG Simvastatin Simvastatin No 1{table QD Simvastati 20 MG 20 MG t_in_th n 20 MG e_eveni ng} Escitalopra Escitalopra No 1{table QD Escitalopr m Oxalate m Oxalate t} am Oxalate 10 MG 10 MG 10 MG Simvastatin Simvastatin No QD Simvastati 20MG 20MG n 20MG Escitalopra Escitalopra No Escitalopr m Oxalate m Oxalate am Oxalate 10 MG 10 MG 10 MG ZyrTEC ZyrTEC No 1{table QD ZyrTEC Allergy 10 Allergy 10 t} Allergy 10 MG MG MG Simvastatin Simvastatin No Simvastati 20 MG 20 MG n 20 MG Lexapro 10 Lexapro 10 No 1{table QD Lexapro 10 MG MG t} MG Simvastatin Simvastatin No QD Simvastati 20MG 20MG n 20MG ZyrTEC ZyrTEC No 1{table QD ZyrTEC Allergy 10 Allergy 10 t} Allergy 10 MG MG MG ZyrTEC ZyrTEC No 1{table QD Allergy 10 Allergy 10 t} MG MG Lexapro 10 Lexapro 10 No 1{table QD MG MG t} Simvastatin Simvastatin No QD 20MG 20MG ZyrTEC ZyrTEC No 1{table QD ZyrTEC Allergy 10 Allergy 10 t} Allergy 10 MG MG MG Lexapro 10 Lexapro 10 No 1{table QD Lexapro 10 MG MG t} MG Simvastatin Simvastatin No QD Simvastati 20MG 20MG n 20MG ZyrTEC ZyrTEC No 1{table QD ZyrTEC Allergy 10 Allergy 10 t} Allergy 10 MG MG MG Lexapro 10 Lexapro 10 No 1{table QD Lexapro 10 MG MG t} MG Simvastatin Simvastatin No QD Simvastati 20MG 20MG n 20MG Escitalopra Escitalopra No Escitalopr m Oxalate m Oxalate am Oxalate 10 MG 10 MG 10 MG Simvastatin Simvastatin No Simvastati 20 MG 20 MG n 20 MG ZyrTEC ZyrTEC No 1{table QD ZyrTEC Allergy 10 Allergy 10 t} Allergy 10 MG MG MG Escitalopra Escitalopra No Escitalopr m Oxalate m Oxalate am Oxalate 10 MG 10 MG 10 MG ZyrTEC ZyrTEC No 1{table QD ZyrTEC Allergy 10 Allergy 10 t} Allergy 10 MG MG MG Simvastatin Simvastatin No Simvastati 20 MG 20 MG n 20 MG Escitalopra Escitalopra No Escitalopr m Oxalate m Oxalate am Oxalate 10 MG 10 MG 10 MG Immunizations Ordered Filled Immunization Date Status Comments Sourc e Immunization Name Name FLUZONE HIGH DOSE FLUZONE HIGH DOSE 2022-09-14 Completed [facility] - OVER 65 OVER 65 16:44:00 [facility] FLUZONE HIGH DOSE FLUZONE HIGH DOSE 2022-09-14 Completed [facility] - OVER 65 OVER 65 16:44:00 [facility] FLUZONE HIGH DOSE FLUZONE HIGH DOSE 2022-09-14 Completed [facility] - OVER 65 OVER 65 16:44:00 [facility] Influenza Virus 2022-03-17 Completed Universit y of Vaccine,quad 00:00:00 [facility] Im,preserve Free Branch 65+ Influenza Virus 2022-03-17 Completed Universit y of Vaccine,quad 00:00:00 [place] [facility] Im,preserve Free Branch 65+ Influenza Virus 2022-03-17 Completed Universit y of Vaccine,quad 00:00:00 [place] [facility] Im,preserve Free Branch 65+ Influenza Virus 2022-03-17 Completed Universit y of Vaccine,quad 00:00:00 [place] Med[facility] Im,preserve Free Branch 65+ Influenza Virus 2022-03-17 Completed Universit y of Vaccine,quad 00:00:00 [place] Med[facility] l Im,preserve Free Branch 65+ Influenza Virus 2022-03-17 Completed Universit y of Vaccine,quad 00:00:00 [place] Medica l Im,preserve Free Branch 65+ SARS-COV-2 COVID-19 2021-09-24 Completed Unive rsity of MODERNA VACCINE 00:00:00 [place] Med ical Branch SARS-COV-2 COVID-19 2021-09-24 Completed Unive rsity of MODERNA 12+ YRS 00:00:00 [place] Med ical VACCINE Branch SARS-COV-2 COVID-19 2021-09-24 Completed Unive rsity of MODERNA 12+ YRS 00:00:00 [place] Med ical VACCINE Branch SARS-COV-2 COVID-19 2021-09-24 Completed Unive rsity of MODERNA 12+ YRS 00:00:00 [place] Med ical VACCINE Branch SARS-COV-2 COVID-19 2021-09-24 Completed Unive rsity of MODERNA 12+ YRS 00:00:00 [place] Med ical VACCINE Branch SARS-COV-2 COVID-19 2021-09-24 Completed Unive rsity of MODERNA 12+ YRS 00:00:00 [place] Med ical VACCINE Branch SARS-COV-2 COVID-19 2021-01-17 Completed Unive rsity of MODERNA VACCINE 00:00:00 [place] Med ical Branch SARS-COV-2 COVID-19 2021-01-17 Completed Unive rsity of MODERNA 12+ YRS 00:00:00 [place] Med ical VACCINE Branch SARS-COV-2 COVID-19 2021-01-17 Completed Unive rsity of MODERNA 12+ YRS 00:00:00 [place] Med ical VACCINE Branch SARS-COV-2 COVID-19 2021-01-17 Completed Unive rsity of MODERNA 12+ YRS 00:00:00 [place] Med ical VACCINE Branch SARS-COV-2 COVID-19 2021-01-17 Completed Unive rsity of MODERNA 12+ YRS 00:00:00 [place] Med ical VACCINE Branch SARS-COV-2 COVID-19 2021-01-17 Completed Unive rsity of MODERNA 12+ YRS 00:00:00 [place] Med ical VACCINE Branch SARS-COV-2 COVID-19 2020-12-20 Completed Unive rsity of MODERNA VACCINE 00:00:00 [place] Med ical Branch SARS-COV-2 COVID-19 2020-12-20 Completed Unive rsity of MODERNA 12+ YRS 00:00:00 [place] Med ical VACCINE Branch SARS-COV-2 COVID-19 2020-12-20 Completed Unive rsity of MODERNA 12+ YRS 00:00:00 [place] Med ical VACCINE Branch SARS-COV-2 COVID-19 2020-12-20 Completed Unive rsity of MODERNA 12+ YRS 00:00:00 [place] Med ical VACCINE Branch SARS-COV-2 COVID-19 2020-12-20 Completed Unive rsity of MODERNA 12+ YRS 00:00:00 [place] [facility] ical VACCINE Branch SARS-COV-2 COVID-19 2020-12-20 Completed Unive rsity of MODERNA 12+ YRS 00:00:00 [place] Med ical VACCINE Branch FluAD FluAD 2019-10-16 Completed [facility] - 10:10:00 [facility] FluAD FluAD 2019-10-16 Completed [facility] - 10:10:00 [facility] FluAD FluAD 2019-10-16 Completed [facility] - 10:10:00 [facility] FluAD FluAD 2019-10-16 Completed [facility] - 10:10:00 [facility] FluAD FluAD 2019-10-16 Completed [facility] - 10:10:00 [facility] FluAD FluAD 2019-10-16 Completed [facility] - 10:10:00 [facility] FluAD FluAD 2019-10-16 Completed [facility] - 10:10:00 [facility] FluAD FluAD 2019-10-16 Completed [facility] - 10:10:00 [facility] FluAD FluAD 2019-10-16 Completed [facility] - 10:10:00 [facility] FluAD FluAD 2019-10-16 Completed [facility] - 10:10:00 [facility] FluAD FluAD 2019-10-16 Completed [facility] - 00:00:00 [facility] Prevnar 13 Prevnar 13 2018-03-20 Completed [facility] - -Pneumonia Vaccine -Pneumonia Vaccine 16:41:00 [facility] Prevnar 13 Prevnar 13 2018-03-20 Completed [facility] - -Pneumonia Vaccine -Pneumonia Vaccine 16:41:00 [facility] Prevnar 13 Prevnar 13 2018-03-20 Completed [facility] - -Pneumonia Vaccine -Pneumonia Vaccine 16:41:00 [facility] Prevnar 13 Prevnar 13 2018-03-20 Completed [facility] - -Pneumonia Vaccine -Pneumonia Vaccine 16:41:00 [facility] Prevnar 13 Prevnar 13 2018-03-20 Completed [facility] - -Pneumonia Vaccine -Pneumonia Vaccine 16:41:00 [facility] Prevnar 13 Prevnar 13 2018-03-20 Completed [facility] - -Pneumonia Vaccine -Pneumonia Vaccine 16:41:00 [facility] Prevnar 13 Prevnar 13 2018-03-20 Completed [facility] - -Pneumonia Vaccine -Pneumonia Vaccine 16:41:00 [facility] Prevnar 13 Prevnar 13 2018-03-20 Completed [facility] - -Pneumonia Vaccine -Pneumonia Vaccine 16:41:00 [facility] Prevnar 13 Prevnar 13 2018-03-20 Completed [facility] - -Pneumonia Vaccine -Pneumonia Vaccine 16:41:00 [facility] Prevnar 13 Prevnar 13 2018-03-20 Completed [facility] - -Pneumonia Vaccine -Pneumonia Vaccine 16:41:00 [facility] Prevnar 13 Prevnar 13 2018-03-20 Completed [facility] - -Pneumonia Vaccine -Pneumonia Vaccine 00:00:00 [facility] Vital Signs Vital Name Observation Time Observation Value Comments Source Systolic blood 2023-02-24 19:25:00 116 mm[Hg] Univer sity of pressure [facility] Diastolic blood 2023-02-24 19:25:00 63 mm[Hg] Unive rsity of pressure [facility] Heart rate 2023-02-24 19:25:00 63 /min Universi ty [facility] Respiratory rate 2023-02-24 19:25:00 19 /min Univ ersity of [facility] Body height 2023-02-24 19:25:00 170.2 cm Universi ty of [facility] Body weight 2023-02-24 19:25:00 80.241 kg Universi ty [facility] BMI 2023-02-24 19:25:00 27.71 kg/m2 Universi [facility] Oxygen saturation in 2023-02-24 19:25:00 95 /min [facility] Arterial blood by [facility] Pulse oximetry Branch height 2022-09-14 14:20:00 63.00 [in_i] Common [facility] weight 2022-09-14 14:20:00 178.6 [lb_av] [facility] temperature 2022-09-14 14:20:00 97.3 [degF] Common [facility] bmi 2022-09-14 14:20:00 31.63 kg/m2 [facility] oximetry 2022-09-14 14:20:00 95 % [facility] respiratory rate 2022-09-14 14:20:00 15 /min Comm on [facility] blood pressure 2022-09-14 14:20:00 119 mm[Hg] Common [facility] - systolic [facility] blood pressure 2022-09-14 14:20:00 80 mm[Hg] Common [facility] - diastolic [facility] height 2022-01-14 16:00:00 63.00 [in_i] Common [facility] weight 2022-01-14 16:00:00 174.8 [lb_av] [facility] temperature 2022-01-14 16:00:00 97.7 [degF] Common [facility] bmi 2022-01-14 16:00:00 30.96 kg/m2 [facility] oximetry 2022-01-14 16:00:00 96 % Common S pirit - [facility] respiratory rate 2022-01-14 16:00:00 16 /min Comm on [facility] - [facility] blood pressure 2022-01-14 16:00:00 112 mm[Hg] [facility] - systolic [facility] blood pressure 2022-01-14 16:00:00 75 mm[Hg] [facility] - diastolic [facility] Procedures Procedure Date / Time Performed Performing Clinician [facility] e ASSIGNMENT OF BENEFITS 2023-02-24 14:40:46 Doctor Unassigned, No [facility] Plan of Care Planned Activity Planned Date Details Comments Source Future Scheduled 2023-05-05 [facility] Test 10:00:26 malignant neoplasm of colon (procedure) [code = 591831997] Future Scheduled 2023-05-05 [facility] Test 10:00:26 malignant neoplasm of colon (procedure) [code = 266843497] Future Scheduled 2023-05-05 COVID-19 VACCINE (#1) [facility] Test 10:00:26 [code = COVID-19 VACCINE (#1)] Future Scheduled 2023-05-05 [facility] for [facility] Test 10:00:26 malignant neoplasm of colon (procedure) [code = 370581260] Future Scheduled 2023-05-05 SHINGLES VACCINES (1 [facility] 10:00:26 of 2) [code = SHINGLES VACCINES (1 of 2)] Future Scheduled 2023-05-05 65+ PNEUMOCOCCAL [facility] Test 10:00:26 VACCINE (1 - PCV) [code = 65+ PNEUMOCOCCAL VACCINE (1 - PCV)] Future Scheduled 2023-05-05 [facility] for [facility] Test 10:00:26 malignant neoplasm of colon (procedure) [code = 124563764] Future Scheduled 2023-05-05 [facility] Test 10:00:26 malignant neoplasm of colon (procedure) [code = 095419521] Future Scheduled 2023-05-05 INFLUENZA VACCINE [facility] Test 10:00:26 [code = INFLUENZA VACCINE] Encounters Start End Encounter Admission Attending Care Care Encounter Source Date/Time Date/Time Type Type Clinicians Facility Department ID 2023-02-01 Outpatient Lion STLMLC STLMLC [id number] Common 12:59:00 Ronnell [id number] [facility] 2023-01-19 Outpatient Seymour, STLMLC STLMLC [id number] Common 09:08:00 Ronnell [id number] [facility] 2023-01-12 Outpatient Seymour, STLMLC STLMLC [id number] Common 13:25:01 Ronnell [id number] [facility] 2022-12-08 Outpatient Seymour, STLMLC STLMLC [id number] Common 11:56:00 Ronnell [id number] [facility] 2022-09-16 Outpatient STLMLC STLMLC [id number] Common 13:35:02 [id number] [facility] 2022-09-10 Outpatient Rodriguez, Na STLMLC STLMLC [id number] Common 13:49:00 [id number] [facility] 2022-01-13 Outpatient Rodriguez, Na STLMLC STLMLC [id number] Common 10:45:01 [facility] 2021-12-09 Outpatient Rodriguez, Na STLMLC STLMLC [id number] Common 12:28:14 [id number] [facility] 2021-12-09 Outpatient Rodriguez, Na STLMLC STLMLC [id number] Common 12:10:40 [id number] [facility] 2021-12-09 Outpatient Rodriguez, Na STLMLC STLMLC [id number] Common 11:29:04 [id number] [facility] 2024-02-27 2024-02-27 Outpatient R MANDA, [facility] [id number] Univers 10:20:00 10:20:00 DANA rodrigues o [facility] 2023-09-08 2023-09-08 Outpatient R KEYANAANI, [facility] [id number] Univers 09:00:00 09:00:00 SCOTT rodrigues [facility] 2023-03-17 2023-03-17 Outpatient R MANDA, [facility] [id number] Univers 10:00:00 10:00:00 DANA meza [facility] 2023-03-17 2023-03-17 Outpatient R MANDA [facility] [id number] Univers 10:00:00 10:00:00 DANA rodrigues o f [facility] 2023-02-24 2023-02-24 [facility] [id number] Univers 09:40:00 23:59:00 SCOTT ity [facility] 2023-02-24 2023-02-24 [facility] [id number] Univers 14:20:00 14:48:41 Visit Dana MASCORRO [id number] ity of [id number] [phone] [address] 2023-02-24 2023-02-24 Orders Doctor CHANDNI [id number] Univers 00:00:00 00:00:00 Only Unassigned, AGUEDA [id number] [place] [facility] [id number] Nico as [phone] [address] 2023-02-22 2023-02-22 Telephone [facility] [id number] Univers 00:00:00 00:00:00 Dana MASCORRO [id number] it[facility] [id number] [phone] [address] 2022-12-30 2022-12-30 Outpatient [facility] [id number] Univers 10:00:00 10:00:00 SCOTT ity [facility] 2022-12-08 2022-12-08 (TEL) STLMLC STLMLC [id number] Co mmon 00:00:00 00:00:00 Spirit - [facility] 2022-09-14 2022-09-14 OFFICE STLMLC STLMLC [id number] Co mmon 00:00:00 00:00:00 VISIT Spirit ESTAB PT - CHI LEVEL 4 [facility] 2022-09-14 2022-09-14 (TEL) STLMLC STLMLC [id number] Co mmon 00:00:00 00:00:00 [facility] 2022-08-18 2022-08-18 (TEL) STLMLC STLMLC [id number] Co mmon 00:00:00 00:00:00 [facility] 2022-07-29 2022-07-29 (TEL) STLMLC STLMLC [id number] Co mmon 00:00:00 00:00:00 [facility] 2022-07-29 2022-07-29 Telephone [facility] [id number] Univers 00:00:00 00:00:00 Dana MASCORRO [id number] ity [facility] [id number] [phone] [address] 2022-07-02 2022-07-02 Outpatient R SEWANI, [facility] [id number] Univers 09:00:00 23:59:00 SCOTT ity [facility] 2022-04-06 2022-04-06 Telephone [facility] [id number] Univers 00:00:00 00:00:00 Dana MASCORRO [id number] ity [facility] [id number] [id number] [address] 2022-04-05 2022-04-05 Outpatient R MANDA, [facility] [id number] Univers 11:00:00 23:59:00 DANA rodrigues o [facility] 2022-04-05 2022-04-05 Outpatient R MANDA, [facility] [id number] Univers 11:00:00 23:59:00 DANA rodrigues o [facility] 2022-03-25 2022-03-25 Outpatient R MANDA, [facility] [id number] Univers 08:00:00 08:00:00 DANA rodrigues o [facility] 2022-03-17 2022-03-17 [facility] [id number] Univers 09:20:00 10:00:43 Visit Dana MASCORRO [id number] ity of [id number] [phone] [place] 510429 [facility] 2022-03-17 2022-03-17 Outpatient R MANDA, [facility] [id number] Univers 09:20:00 10:00:43 DANA maldonadoy o [facility] 2022-03-17 2022-03-17 Outpatient R MANDA, [facility] [id number] Univers 09:20:00 10:00:43 DANA maldonadoy o [facility] 2022-03-17 2022-03-17 Outpatient R MANDA, [facility] [id number] Univers 09:20:00 09:20:00 [facility] 2022-02-23 2022-02-23 Outpatient R MANDA, [facility] [id number] Univers 13:40:00 13:40:00 [facility] 2022-01-14 2022-01-14 OFFICE STLMLC STLMLC [id number] Co mmon 00:00:00 00:00:00 VISIT [facility] LEVEL 4 [facility] 2022-01-08 2022-01-08 Outpatient R SEWANI, [facility] [id number] Univers 10:00:00 23:59:00 SCOTT ity [facility] 2022-01-08 2022-01-08 Orders Doctor TARIQ [id number] Univers 00:00:00 00:00:00 Only Unassigned, AGUEDA [id number] [facility] [id number] [place] [phone] [place] [address] [place] 2022-01-06 2022-01-06 (TEL) STLMLC STLMLC [id number] Co mmon 00:00:00 00:00:00 [facility] 2021-12-07 2021-12-07 (TEL) STLMLC STLMLC [id number] Co mmon 00:00:00 00:00:00 [facility] 2021-09-29 2021-09-29 (TEL) STLMLC STLMLC [id number] Co mmon 00:00:00 00:00:00 [facility] 2021-07-28 2021-07-28 Outpatient R CHERI [facility] [id number] Univers 14:40:00 14:40:[address] [facility] 2021-06-04 2021-06-04 Outpatient STLMLC STLMLC [id number] Common 00:00:00 00:00:00 [facility] 2021-03-27 2021-03-27 Outpatient R CHERRI [facility] [id number] Univers 09:30:00 09:30:[address] [facility] 2021-03-24 2021-03-24 Outpatient R [facility] [id number] Univers 13:40:00 13:40:00 [facility] 2021-03-24 2021-03-24 Outpatient R CHERI [facility] [id number] Univers 13:30:00 13:30:00 [facility] 2021-03-09 2021-03-09 Outpatient R MANDA [facility] [id number] Univers 09:40:00 09:40:00 DANA maldonado o f [facility] 2021-03-02 2021-03-02 Outpatient R PERLA ODONNELL [facility] [id number] Univers 13:00:00 13:00:[address] [facility] 2021-01-17 2021-01-17 Outpatient [facility] [id number] Univers 10:45:00 10:45:00 [facility] 2020-12-20 2020-12-20 Outpatient [facility] [id number] Univers 10:40:00 10:40:00 [facility] 2020-12-17 2020-12-17 Outpatient STLMLC STLMLC [id number] Common 00:00:00 00:00:00 [facility] 2020-12-02 2020-12-02 Outpatient STLMLC STLMLC [id number] Common 00:00:00 00:00:00 [facility] 2020-10-21 2020-10-21 Outpatient STLMLC STLMLC [id number] Common 00:00:00 00:00:00 [facility] 2020-09-23 2020-09-23 Outpatient R [facility] [id number] Univers 13:30:00 13:30:00 ity [facility] 2020-05-20 2020-05-20 Outpatient [facility] [id number] Common 04:10:00 04:10:[address] [facility] 2020-05-13 2020-05-13 Outpatient [facility] [id number] Common 10:40:00 10:40:[address] [facility] 2020-05-09 2020-05-09 Outpatient R [facility] [id number] Univers 09:15:00 09:15:00 ity [facility] 2020-04-09 2020-04-09 Outpatient [facility] [id number] Common 16:45:00 16:45:00 t [facility] [address] [facility] 2020-03-05 2020-03-05 Outpatient R MANDA, [facility] [id number] Univers 10:00:00 10:00:00 DANA ity o f [facility] 2019-11-05 2019-11-05 Outpatient [facility] [id number] Common 17:28:00 17:28:[address] [facility] 2019-10-31 2019-10-31 Outpatient [facility] [id number] Common 10:00:00 10:00:[address] [facility] 2019-10-16 2019-10-16 Outpatient [facility] [id number] Common 10:00:00 10:00:[address] [facility] 2019-05-08 2019-05-08 Outpatient [facility] [id number] Common 16:40:00 16:40:[address] [facility] 2019-01-30 2019-01-30 Outpatient [facility] [id number] Common 09:51:00 09:51:[address] [facility] 2018-11-17 2018-11-17 Outpatient [facility] [id number] Common 10:30:00 10:30:[address] [facility] 2018-04-11 2018-04-11 Outpatient [facility] [id number] Common 14:03:00 14:03:[address] [facility] 2018-03-20 2018-03-20 Outpatient [facility] [id number] Common 15:15:00 15:15:[address] [facility] Results This patient has no known results.
[2023-05-27] MEDS ORDERED: NA CHLORIDE 0.9% 1,000 ML ONE (10:08)
[2023-05-27 10:19] LABS: Absolute Lymphocytes (CBC) 3.6 K/uL (0.7-4.9); Hematocrit 45.2 % (39.6-49.0); Lymphocytes % 28.2 % (15.3-44.8); MCV 88.4 fL (80-100); RBC Red Blood Cell Count 5.11 M/uL (4.33-5.43)
[2023-05-27 10:37] LABS: Albumin 3.3 g/dL (3.4-5.0); Bilirubin Total 0.9 mg/dL (0.2-1.0); Potassium 3.6 mEq/L (3.5-5.1); Protein, Total 7.2 g/dL (6.4-8.2)
--- NOTE | 2023-05-27 11:47 | RAD REPORT ---
EXAM DESCRIPTION: CT - Abdomen Pelvis W Contrast - 05/27/2023 11:19 am CLINICAL HISTORY: ABD PAIN COMPARISON: Abdomen Pelvis W Contrast dated 10/25/2019 TECHNIQUE: Thin cut axial CT imaging of the abdomen and pelvis was performed following intravenous a dministration of 100 mL Isovue 300. Multiplanar reformats were generated and reviewed. All CT scans are performed using dose optimization technique as appropriate and may include automated exposure control or mA/KV adjustment according to patient size. FINDINGS: No suspicious findings in the lung bases. The liver, spleen, and pancreas show no suspicious findings. Gallbladder and biliary tree are also wi thout suspicious finding. Symmetric renal function is seen with no hydronephrosis or suspicious renal mass. No dilated bowel loops. Colonic diverticulosis. Focal inflammatory changes with wall thickening and a djacent fat stranding at the descending/ sigmoid colon junction. No appreciable extraluminal gas or f luid collections. No free air, free fluid, or fluid collections. No mass or bulky lymphadenopathy. Th e urinary bladder is without significant finding. No suspicious bony findings. IMPRESSION: Sequelae of acute noncomplicated diverticulitis at the descending/ sigmoid colon junctio n. The findings were communicated to Fannie Noguera on 05/27/2023 at 11:42 hours.
--- NOTE | 2023-05-27 11:55 | ER ---
Nurse's Notes [facility] Name: Shyann Hardin Age: 72 yrs Sex: Male : 1950 Arrival Date: 05/27/2023 Time: 09:32 Bed 4 Private MD: Diagnosis: Diverticulitis of intestine, part unspecified, without perforation or abscess without bleeding Presentation: 05/27 09:35 Chief complaint: Patient states: lower abd pain and loose stools. Pt states "I have a aa5 hernia". 09:35 Coronavirus screen: At this time, the client does not indicate any symptoms associated aa5 with coronavirus-19. Ebola Screen: Patient denies travel to an Ebola-affected area in the 21 days before illness onset. Initial Sepsis Screen: Does the patient meet any 2 criteria? No. Patient's initial sepsis screen is negative. Does the patient have a suspected source of infection? No. Patient's initial sepsis screen is negative. Risk Assessment: Do you want to hurt yourself or someone else? Patient reports no desire to harm self or others. Onset of symptoms was May 2023. 09:35 Acuity: AIRAM 3 aa5 09:35 Method Of Arrival: Ambulatory aa5 Historical: - Allergies: 09:45 PENICILLINS; aa5 - PMHx: 09:45 Anxiety; Diverticulitis; GERD; High Cholesterol; Sleep Apnea; TIA; thyroid problem; aa5 - PSHx: 09:45 hernia repair; pacemaker; aa5 - Immunization history:: Adult Immunizations unknown. - Social history:: Smoking status: Patient denies any tobacco usage or history of. Screenin:31 [facility] ED Fall Risk Assessment (Adult) History of falling in the last 3 months, ph including since admission No falls in past 3 months (0 pts) Confusion or Disorientation No (0 pts) Intoxicated or Sedated No (0 pts) Impaired Gait No (0 pts) Mobility Assist Device Used No (0 pt) Altered Elimination No (0 pt) Score/Fall Risk Level 0 - 2 = Low Risk Oriented to surroundings, Maintained a safe environment, Hourly rounding (assess needs \\T\\ fall precautionary measures) done. Abuse screen: Denies threats or abuse. Denies injuries from another. Nutritional screening: No deficits noted. Tuberculosis screening: No symptoms or risk factors identified. Assessment: 10:30 General: Appears in no apparent distress. comfortable, slender, Behavior is calm, ph cooperative, appropriate for age, Denies fever. Pain: Complains of pain in right lower quadrant and left lower quadrant. Neuro: Level of Consciousness is awake, alert, obeys commands, Oriented to person, place, time, situation. Cardiovascular: Capillary refill < 3 seconds in bilateral fingers Patient's skin is warm and dry. Respiratory: Airway is patent Respiratory effort is even, unlabored, Respiratory pattern is regular, symmetrical. GI: Reports lower abdominal pain, diarrhea, Patient currently denies nausea, vomiting. : No signs and/or symptoms were reported regarding the genitourinary system. Derm: Skin is pink, warm \\T\\ dry. Vital Signs: 09:35 BP 120 / 85; Pulse 74; Resp 16 S; Temp 97.3(TE); Pulse Ox 98% on R/A; aa5 11:34 BP 117 / 82; Pulse 68; Resp 18; Pulse Ox 98% on R/A; ph ED Course: 09:34 Patient arrived in ED. ts1 09:35 Fannie Noguera FNP-C is PHCP. kb 09:35 Lucian Madrid MD is Attending Physician. kb 09:35 Arm band placed on Patient placed in an exam room, on a stretcher. aa5 09:40 Neha Che, RN is Primary Nurse. ph 09:46 Triage completed. aa5 09:56 CBC with Diff Sent. ss 09:56 CMP Sent. ss 09:57 Patient has correct armband on for positive identification. Placed in gown. Bed in low mm9 position. Call light in reach. Side rails up X 1. Warm blanket given. Pulse ox on. NIBP on. 09:57 Initial lab(s) drawn, by me, sent to lab. Inserted saline lock: 22 gauge in left mm9 antecubital area, using aseptic technique. Blood collected. 11:17 Note: started new IV, placed a 22 diffusics in right AC. ls3 11:21 CT Abd/Pelvis - IV Contrast Only In Process Unspecified. EDMS 12:10 Provided Education on: Antibiotic use and side effects. ph 12:10 No provider procedures requiring assistance completed. IV discontinued, intact, ph bleeding controlled, No redness/swelling at site. Pressure dressing applied. Administered Medications: 10:42 Drug: NS 0.9% IV 1000 ml Route: IV; Rate: 1 bolus; Site: left antecubital; ph 12:09 Follow up: Response: No adverse reaction; IV Status: Completed infusion ph 12:09 Drug: Ciprofloxacin PO 500 mg Route: PO; ph 12:10 Follow up: Response: No adverse reaction ph 12:09 Drug: metroNIDAZOLE PO 500 mg Route: PO; ph 12:10 Follow up: Response: No adverse reaction ph Medication: 11:34 VIS not applicable for this client. ph Outcome: 11:54 Discharge ordered by . kb 12:10 Discharged to home ambulatory. ph 12:10 Condition: good 12:10 Discharge instructions given to patient, Instructed on discharge instructions, follow up and referral plans. medication usage, Demonstrated understanding of instructions, follow-up care, medications, Prescriptions given X 2. 12:11 Patient left the ED. ph Signatures: Dispatcher [employer] EDMS Fannie Noguera, SOFT SUGAR CUTTER-C SOFT SUGAR CUTTER-CkYumiko Mallory RN RN aa5 Josefa Lanier RN RN Neha Che RN RN Funmi Valencia 3 Natali Willett mm9 Ada Taylor, PAS PAS ts1
--- NOTE | 2023-05-27 11:55 | EDPHYS ---
Physician Documentation [facility] Name: Shyann Hardin Age: 72 yrs Sex: Male : 1950 Arrival Date: 05/27/2023 Time: 09:32 Bed 4 Private MD: DHARA Physician Lucian Madrid HPI: 05/27 11:53 This 72 yrs old Male presents to ER via Ambulatory with complaints of Abdominal Pain. kb 11:53 The patient presents with abdominal pain in the left lower quadrant. Onset: The kb symptoms/episode began/occurred yesterday. The symptoms do not radiate. Associated signs and symptoms: Pertinent positives: diarrhea, Pertinent negatives: nausea and vomiting, fever. The symptoms are described as constant. Modifying factors: The symptoms are alleviated by nothing, the symptoms are aggravated by nothing. Severity of pain: At its worst the pain was moderate in the emergency department the pain is unchanged. The patient has not experienced similar symptoms in the past. The patient has not recently seen a physician. Pt reports lower abd pain and diarrhea that started yesterday. . Historical: - Allergies: 09:45 PENICILLINS; aa5 - PMHx: 09:45 Anxiety; Diverticulitis; GERD; High Cholesterol; Sleep Apnea; TIA; thyroid problem; aa5 - PSHx: 09:45 hernia repair; pacemaker; aa5 - Immunization history:: Adult Immunizations unknown. - Social history:: Smoking status: Patient denies any tobacco usage or history of. ROS: 11:52 Constitutional: Negative for fever, chills, and weight loss. kb 11:52 Abdomen/GI: Positive for abdominal pain, diarrhea, Negative for nausea and vomiting. 11:52 All other systems are negative. Exam: 11:52 Constitutional: This is a well developed, well nourished patient who is awake, alert, kb and in no acute distress. Head/Face: Normocephalic, atraumatic. ENT: Moist Mucous membranes Cardiovascular: Regular rate and rhythm with a normal S1 and S2. No gallops, murmurs, or rubs. No pulse deficits. Respiratory: Respirations even and unlabored. No increased work of breathing. Talking in full sentences Skin: Warm, dry with normal turgor. Normal color. MS/ Extremity: Pulses equal, no cyanosis. Neurovascular intact. Full, normal range of motion. Neuro: Awake and alert, GCS 15, oriented to person, place, time, and situation. Moves all extremities. Normal gait. 11:52 Abdomen/GI: Inspection: abdomen appears normal, Bowel sounds: normal, Palpation: soft, in all quadrants, mild abdominal tenderness, in the left lower quadrant, Hernia: noted in the right inguinal area, easily reduced. Vital Signs: 09:35 BP 120 / 85; Pulse 74; Resp 16 S; Temp 97.3(TE); Pulse Ox 98% on R/A; aa5 11:34 BP 117 / 82; Pulse 68; Resp 18; Pulse Ox 98% on R/A; ph MDM: 09:36 Patient medically screened. kb 11:53 Differential diagnosis: appendicitis, diverticulitis, non-specific abd pain. Data kb reviewed: vital signs, nurses notes. Discussion of test interpretation with radiology: I had a discussion with radiology regarding a test interpretation. Discussed CT results with Dr Hamm. Counseling: I had a detailed discussion with the patient and/or guardian regarding: the historical points, exam findings, and any diagnostic results supporting the discharge/admit diagnosis, lab results, radiology results, the need for outpatient follow up, a family practitioner, to return to the emergency department if symptoms worsen or persist or if there are any questions or concerns that arise at home. 05/27 09:47 Order name: CBC with Diff; Complete Time: 10:41 kb 05/27 09:47 Order name: CMP; Complete Time: 10:41 kb 05/27 09:47 Order name: CT Abd/Pelvis - IV Contrast Only; Complete Time: 11:48 kb 05/27 09:47 Order name: IV Saline Lock; Complete Time: 09:56 kb 05/27 09:47 Order name: Labs collected and sent; Complete Time: 09:56 kb Administered Medications: 10:42 Drug: NS 0.9% IV 1000 ml Route: IV; Rate: 1 bolus; Site: left antecubital; ph 12:09 Follow up: Response: No adverse reaction; IV Status: Completed infusion ph 12:09 Drug: Ciprofloxacin PO 500 mg Route: PO; ph 12:10 Follow up: Response: No adverse reaction ph 12:09 Drug: metroNIDAZOLE PO 500 mg Route: PO; ph 12:10 Follow up: Response: No adverse reaction ph Disposition Summary: 05/27/23 11:54 Discharge Ordered Location: Home kb Condition: Stable kb Diagnosis - Diverticulitis of intestine, part unspecified, without perforation or abscess kb without bleeding Followup: kb - With: Emergency Department - When: As needed - Reason: Worsening of condition Followup: kb - With: Private Physician - When: 2 - 3 days - Reason: Recheck today's complaints, Continuance of care, Re-evaluation by your physician Discharge Instructions: - Discharge Summary Sheet kb - Diverticulitis, [id number] kb Forms: - Medication Reconciliation Form kb - Thank You Letter kb - Antibiotic Education kb - Prescription Opioid Use kb - Patient Portal Instructions kb Prescriptions: - Flagyl 500 mg Oral Tablet - take 1 tablet by ORAL route every 8 hours for 10 days; 30 tablet; Refills: 0, kb Product Selection Permitted - Cipro 500 mg Oral Tablet - take 1 tablet by ORAL route every 12 hours for 10 days; 20 tablet; Refills: 0, kb Product Selection Permitted Signatures: Dispatcher [employer] Fannie Sims, LUCA HUFF-Yumiko Mays, RN RN aa5 Neha Che RN RN ph
[2023-05-27] MEDS ORDERED: CIPROFLOXACIN HCL 500 MG TAB ONE (12:03)
[2023-05-27] MEDS ORDERED: metroNIDAZOLE 500 MG TABLET ONE (12:03)
[2023-05-27 12:59] VITALS: TEMP 97.3; O2SAT 98
[2023-05-27 13:02] VITALS: BP 117/82
== END 2023-05-27 12:11 | disposition home or self-care (01) ==
LOC: ER 09:32
DX: K57.32 Diverticulitis of large intestine without perforation or abscess without bleeding (principal); Z88.0 Allergy status to penicillin; Z95.0 Presence of cardiac pacemaker
CPT/HCPCS: 85025; 36415; 80053; 74177; 96360; 99284; Q9967; J7030

== ENCOUNTER 2023-07-12 18:34 | Emergency (ER) | payer OTHER ==
--- OUTSIDE RECORDS SUMMARY | 2023-07-12 18:39 | XMS REPORT | Continuity of Care Document ---
:1950 Author Organization [facility] t Address [address] [place] [address] [address] [place] [address] Care Team Providers Name Role Phone Asked, No Pcp Primary Care Physician Unavailable oRnnell Seymour Attending Clinician Unavailable Johns, Na L Attending Clinician Unavailable DANA HOLMAN Attending Clinician Unavailable SCOTT ALONZO Attending Clinician Unavailable Doctor Unassigned, [place] Attending Clinician Unavailable Dana Holman MD Attending Clinician SHO HARLEY Attending Clinician Unavailable PERLA ODONNELL Attending Clinician Unavailable PERLA ODONNELL Attending Clinician Unavailable RONNELL SEYMOUR Admitting Clinician Unavailable SCOTT ALONZO Admitting Clinician Unavailable DANA HOLMAN Admitting Clinician Unavailable Payers Payer Name Policy Type Policy Number Effective Date Expiration Date S brayden [place] [id number] 2021 HEALTHCARE 00:00:00 HEALTH [place] [id number] Common HEALTHCARE [facility] HUMANA MEDICARE C1 [id number] 2018 Common 00:00:00 [facility] Problems Condition Condition Condition Status Onset Resolution Last Treating Co mments Source Name Details Category Date Date Treatment Clinician Date Urticaria Urticaria Problem Com mon [facility] Allergic Allergic Problem Commo n rhinitis rhinitis [facility] - [facility] Anxiety Anxiety Problem Common [facility] - [facility] Requires Pneumococc Problem Com mon vaccinatio al vaccine Sp oumar n administer - CHI ed 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 [id number] Pacemaker Problem Com mon [facility] Dependence Dependence Problem C ommon on on other Spirit enabling enabling - CHI machine or machines device [facility] devices [facility] [id number] Low libido Problem Comm on Spirit - 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 [id number] Encounter Problem Com mon for Spirit prostate - [facility] cancer [facility] Obstructiv Problem C ommon e sleep e sleep Spirit apnea apnea - [facility] syndrome (adult) (pediatric [facility] ) [facility] No known No known Disease Unive rs active active ity of problems problems [facility] Allergies, Adverse Reactions, Alerts Allergy Allergy Status [...] drug 0 Drug Active Unknown Common allergy [facility] Family History Family Member Diagnosis Comments Start Date Stop Date Source Paternal grandfather [facility] Paternal grandmother Colon cancer [facility] Natural brother [facility] Natural father Heart [facility] Natural [facility] Hy[facility] Maternal grandfather [facility] Maternal grandmother Diabetes [facility] Natural mother Heart disease [facility] Natural mother Hypertension [facility] Social History Social Habit Start Date Stop Date Quantity Comments Source History of Tobacco [facility] - Use [facility] Gender identity [facility] Sexual orientation [facility] Exposure to 2023-02-14 2023-02-24 Not sure [facility]-2 (event) 00:00:00 09:39:00 [facility] Tobacco use and 2023-02-24 2023-02-24 Smokeless Universit y of exposure 00:00:00 00:00:00 tobacco non-user [facility] Alcohol intake 2017-07-26 2017-07-26 Current [facility] 00:00:00 00:00:00 non-drinker of Hospital alcohol (finding) History of Social 2017-05-15 2017-05-[address] function 00:00:00 00:00:00 Hospital Sex Assigned At [birth year] [facility] 00:00:00 00:00:00 Hospital Smoking Status Start Date Stop Date Source Never smoked tobacco [facility] Medications Ordered Filled Start Stop Current Ordering [...] 1 00:00: 00:00 MG/3DAYS 00 :00 cetirizine Yes 10mg Take 10 mg U nivers (ZYRTEC) 10 4-26 by mouth ity of mg tablet 09:35[place] [facility] cetirizine Yes 10mg Take 10 mg U nivers (ZYRTEC) 10 4-26 by mouth ity of mg tablet 09:35: as needed. [address] cetirizine Yes 10mg Take 10 mg U nivers (ZYRTEC) 10 4-26 by mouth ity of mg tablet 09:35: as needed. [address] cetirizine Yes 10mg Take 10 mg U nivers (ZYRTEC) 10 4-26 by mouth ity of mg tablet 09:35: as needed. [address] cetirizine Yes 10mg Take 10 mg U nivers (ZYRTEC) 10 4-26 by mouth ity of mg tablet 09:35: as needed. [address] Yes 10mg Take 10 mg U nivers (ZYRTEC) 10 4-26 by mouth ity of mg tablet 09:35: as needed. [address] Yes 10mg Take 10 mg U nivers (ZYRTEC) 10 4-26 by mouth ity of mg tablet 09:35: as needed. [address] Yes 10mg Take 10 mg U nivers (ZYRTEC) 10 4-26 by mouth ity of mg tablet 09:35: as needed. [address] Yes 10mg Take 10 mg U nivers (ZYRTEC) 10 4-26 by mouth ity of mg tablet 09:35: as needed. [address] cetirizine Yes 10mg Take 10 mg U nivers (ZYRTEC) 10 4-26 by mouth ity of mg tablet 09:35: as needed. [address] ibuprofen Yes 200mg Take 200 Uni vers 200 [...] mouth ity of 10 mg 13:22: daily. [address] Branch aspirin 81 2020-0 Yes 81mg Take 81 mg U nivers mg chewable 4-19 by mouth ity of tablet 13:22: daily. [address] Branch Cholecalcif 2020-0 Yes Take by Uni vers brianne, 4-19 mouth ity of Vitamin D3, 13:22: daily. [facility] s (VITAMIN 13 Medical D3) 5,000 Branch unit tablet escitalopra 2020-0 Yes 10mg Take 10 mg Univers m oxalate 4-19 by mouth ity of 10 mg 13:22: daily. [facility] 13 [facility] Branch aspirin 81 2020-0 Yes 81mg Take 81 mg U nivers mg chewable 4-19 by mouth ity of tablet 13:22: daily. [address] Branch Cholecalcif 202-0 Yes Take by Uni vers brianne, 4-19 mouth ity of Vitamin D3, 13:22: [place]. [place] (VIT[place]IN 13 Medical D3) 5,000 Branch unit tablet escitalopra Yes 10mg Take 10 mg Univers m oxalate 4-19 by mouth ity of 10 mg 13:22: daily. [facility] 13 [facility] Branch aspirin 81 Yes 81mg Take 81 mg U nivers mg chewable 4-19 by mouth ity of tablet 13:22: daily. [address] Branch Cholecalcif Yes Take by Uni vers brianne, 4-19 mouth ity of Vitamin D3, 13:22: [place]. [place] (VITAMIN 13 Medical D3) 5,000 Branch unit tablet escitalopra Yes 10mg Take 10 mg Univers m oxalate 4-19 by mouth ity of 10 mg 13:22: daily. [place] tablet 13 [facility] aspirin 81 Yes 81mg Take 81 mg U nivers mg chewable 4-19 by mouth ity of tablet 13:22: daily. [address] Cholecalcif Yes Take by Uni vers brianne, 4-19 mouth ity of Vitamin D3, 13:22: [place]. [place] (VITAMIN 13 Medical D3) 5,000 Branch unit tablet escitalopra Yes 10mg Take 10 mg Univers m oxalate 4-19 by mouth ity of 10 mg 13:22: daily. [facility] 13 [facility] aspirin 81 Yes 81mg Take 81 mg U nivers mg chewable 4-19 by mouth ity of tablet 13:22: daily. [address] Cholecalcif Yes Take by Uni vers brianne, 4-19 mouth ity of Vitamin D3, 13:22: [place]. [place] (VITAMIN 13 Medical D3) 5,000 Branch unit tablet escitalopra 0 Yes 10mg Take 10 mg Univers m oxalate 4-19 by mouth ity of 10 mg 13:22: daily. [place] tablet 13 [facility] aspirin 81 0 Yes 81mg Take 81 mg U nivers mg chewable 4-19 by mouth ity of tablet 13:22: daily. [address] Cholecalcif Yes Take by Uni vers brianne, 4-19 mouth ity of Vitamin D3, 13:22: [place]. [place] (VITAMIN 13 Medical D3) 5,000 Branch unit tablet escitalopra Yes 10mg Take 10 mg Univers m oxalate 4-19 by mouth ity of 10 mg 13:22: daily. [facility] 13 [facility] aspirin 81 Yes 81mg Take 81 mg U nivers mg chewable 4-19 by mouth ity of tablet 13:22: daily. [address] Branch Cholecalcif Yes Take by Uni vers brianne, 4-19 mouth ity of Vitamin D3, 13:22: [place]. [place] (VITAMIN 13 Medical D3) 5,000 Branch unit tablet escitalopra Yes 10mg Take 10 mg Univers m oxalate -19 by mouth ity of 10 mg 13:22: daily. [facility] 13 [facility] aspirin 81 Yes 81mg Take 81 mg U nivers mg chewable 4-19 by mouth ity of tablet 13:22: daily. [address] Cholecalcif Yes Take by Uni vers brianne, 4-19 mouth ity of Vitamin D3, 13:22: [place]. [place] (VITAMIN 13 Medical D3) 5,000 Branch unit tablet escitalopra Yes 10mg Take 10 mg Univers m oxalate -19 by mouth ity of 10 mg 13:22: daily. [address] aspirin 81 Yes 81mg Take 81 mg U nivers mg chewable 4-19 by mouth ity of tablet 13:22: daily. [address] Cholecalcif Yes Take by Uni vers brianne, 4-19 mouth ity of Vitamin D3, 13:22: [place]. [place] (VITAMIN 13 Medical D3) 5,000 Branch unit tablet escitalopra Yes 10mg Take 10 mg Univers m oxalate 4-19 by mouth ity of 10 mg 13:22: daily. [address] aspirin 81 0 Yes 81mg Take 81 mg U nivers mg chewable 4-19 by mouth ity of tablet 13:22: daily. [address] Cholecalcif Yes Take by Uni vers brianne, 4-19 mouth ity of Vitamin D3, 13:22: [place]. [place] (VITAMIN 13 Medical D3) 5,000 Branch unit tablet simvastatin 2017-11 Yes 20mg Take 1 Univ ers 20 mg 0-19 tablet by ity of tablet 00:00: mouth at [place] [address] bedtime. Medical Branch simvastatin 2017-11 Yes 20mg Take 1 Univ ers 20 mg 0-19 tablet by ity of tablet 00:00: mouth at [place] [address] bedtime. Medical Branch simvastatin 2017-11 Yes 20mg Take 1 Univ ers 20 mg 0-19 tablet by ity of tablet 00:00: mouth at [place] [address] bedtime. Medical Branch simvastatin 2017-11 Yes 20mg Take 1 Univ ers 20 mg 0-19 tablet by ity of tablet 00:00: mouth at [place] [address] bedtime. Medical Branch simvastatin 2017-11 Yes 20mg Take 1 Univ ers 20 mg 0-19 tablet by ity of tablet 00:00: mouth at [place] [address] bedtime. Medical Branch simvastatin 2017-11 Yes 20mg Take 1 Univ ers 20 mg 0-19 tablet by ity of tablet 00:00: mouth at [place] [address] bedtime. Medical Branch simvastatin 2017-11 Yes 20mg Take 1 Univ ers 20 mg 0-19 tablet by ity of tablet 00:00: mouth at [place] [address] bedtime. Medical Branch simvastatin 2017-11 Yes 20mg Take 1 Univ ers 20 mg 0-19 tablet by ity of tablet 00:00: mouth at [place] [address] bedtime. Medical Branch simvastatin 2017-11 Yes 20mg Take 1 Univ ers 20 mg 0-19 tablet by ity of tablet 00:00: mouth at [place] [address] bedtime. [facility] Branch simvastatin 2017-11 Yes 20mg Take 1 Univ ers 20 mg 0-19 tablet by ity of tablet 00:00: mouth at [place] [address] bedtime. Medical Branch cholecalcif Yes 1000U QD Take 1,000 Methodi brianne, 9-[address] vitamin D3, 11:23: mouth Hospi ta (cholecalci 15 daily. l ferol) 1,000 unit tablet cholecalcif Yes 1000U QD Take 1,000 Methodi brianne, 9-[address] vitamin D3, 11:23: mouth Hospi ta (cholecalci 15 daily. l ferol) 1,000 unit tablet aspirin Yes 81mg QD Take 81 mg Meth tone (ECOTRIN) 9-[address] 81 MG 11:22: daily. Hospita enteric 22 l coated tablet aspirin Yes 81mg QD Take 81 mg Meth tone (ECOTRIN) 9-[address] 81 MG 11:22: daily. Hospita enteric 22 l coated tablet escitalopra Yes Method i m (LEXAPRO) 6- st 10 MG 00:00: Hospita tablet 00 l escitalopra Yes Method i m (LEXAPRO) 6 st 10 MG 00:00: Hospita tablet 00 l Simvastatin Simvastatin Yes Na Johns TAKE ONE Common TABLET BY Spirit MOUTH AT [facility] BEDTIME [facility] Lexapro Lexapro Yes Na Johns [address] [facility] Zyrtec Zyrtec Yes Na Johns 1 tablet Comm on Allergy Allergy [facility] Lexapro 10 Lexapro 10 No 1{table QD [...] 1{table QD Simvastati 20 MG 20 MG t_in_ n 20 MG e_eveni ng} Escitalopra Escitalopra [...] Spirit - OVER 65 OVER 65 16:44:00 [facility] FLUZONE HIGH DOSE FLUZONE HIGH DOSE 2022-09-14 Completed [facility] - OVER 65 OVER 65 16:44:00 [facility] FLUZONE HIGH DOSE FLUZONE HIGH DOSE 2022-09-14 Completed [facility] - OVER 65 OVER 65 16:44:00 [facility] Influenza Virus 2022-03-17 Completed Universit y of [...] FluAD 2019-10-16 Completed [facility] - 10:10:[address] [facility] FluAD FluAD 2019-10-16 Completed [facility] - 10:10:00 [facility] FluAD FluAD 2019-10-16 Completed [facility] - 10:10:00 [facility] FluAD FluAD 2019-10-16 Completed [facility] - 10:10:00 [facility] FluAD FluAD 2019-10-16 Completed [facility] - 10:10:00 [facility] FluAD FluAD 2019-10-16 Completed [facility] - 10:10:00 [facility] FluAD FluAD 2019-10-16 Completed [facility] - 10:10:00 [facility] FluAD FluAD 2019-10-16 Completed [facility] - 10:10:00 [facility] FluAD FluAD 2019-10-16 Completed [facility] - 10:10:00 [facility] FluAD FluAD 2019-10-16 Completed [facility] - 10:10:00 [facility] FluAD FluAD 2019-10-16 Completed [facility] - 00:00:00 [facility] Prevnar 13 Prevnar 13 2018-03-20 Completed [facility] - -Pneumonia Vaccine -Pneumonia Vaccine 16:41:00 [facility] Prevnar 13 Prevnar 13 2018-03-20 Completed [facility] - -Pneumonia Vaccine -Pneumonia Vaccine 16:41:00 [facility] Prevnar 13 Prevnar 13 2018-03-20 Completed [facility] - -Pneumonia Vaccine -Pneumonia Vaccine 16:41:00 [facility] Prevnar 13 Prevnar 13 2018-03-20 Completed [facility] - -Pneumonia Vaccine -Pneumonia Vaccine 16:41:00 [facility] Prevnar 13 Prevnar 13 2018-03-20 Completed [facility] - -Pneumonia Vaccine -Pneumonia Vaccine 16:41:00 [facility] Prevnar 13 Prevnar 13 2018-03-20 Completed [facility] - -Pneumonia Vaccine -Pneumonia Vaccine 16:41:00 [facility] Prevnar 13 Prevnar 13 2018-03-20 Completed [facility] - -Pneumonia Vaccine -Pneumonia Vaccine 16:41:00 [facility] Prevnar 13 Prevnar 13 2018-03-20 Completed [facility] - -Pneumonia Vaccine -Pneumonia Vaccine 16:41:00 [facility] Prevnar 13 Prevnar 13 2018-03-20 Completed Common [facility] - -Pneumonia Vaccine -Pneumonia Vaccine 16:41:00 [facility] Prevnar 13 Prevnar 13 2018-03-20 Completed Common [facility] - -Pneumonia Vaccine -Pneumonia Vaccine 16:41:00 [facility] Prevnar 13 Prevnar 13 2018-03-20 Completed Common [facility] - -Pneumonia Vaccine -Pneumonia Vaccine 00:00:00 [facility] Vital Signs Vital Name Observation Time Observation Value Comments Source Systolic blood 2023-02-24 19:25:00 116 mm[Hg] Univer [facility]ity [facility] Diastolic blood 2023-02-24 19:25:00 63 mm[Hg] Unive rsity [facility] Heart rate 2023-02-24 19:25:00 63 /min [facility] Respiratory rate 2023-02-24 19:25:00 19 /min [facility] Body height 2023-02-24 19:25:00 170.2 cm [facility] Body weight 2023-02-24 19:25:00 80.241 kg [facility] BMI 2023-02-24 19:25:00 27.71 kg/m2 [facility] Oxygen saturation in 2023-02-24 19:25:00 95 /min [facility] Arterial blood by [facility] Pulse oximetry Branch height 2022-09-14 14:20:00 63.00 [in_i] [facility] weight 2022-09-14 14:20:00 178.6 [lb_av] Common [facility] temperature 2022-09-14 14:20:00 97.3 [degF] [facility] bmi 2022-09-14 14:20:00 31.63 kg/m2 [facility] oximetry 2022-09-14 14:20:00 95 % [facility] respiratory rate 2022-09-14 14:20:00 15 /min Comm on [facility] blood pressure 2022-09-14 14:20:00 119 mm[Hg] Common [facility] - systolic [facility] blood pressure 2022-09-14 14:20:00 80 mm[Hg] [facility] - diastolic [facility] height 2022-01-14 16:00:00 63.00 [in_i] [facility] weight 2022-01-14 16:00:00 174.8 [lb_av] [facility] temperature 2022-01-14 16:00:00 97.7 [degF] [facility] bmi 2022-01-14 16:00:00 30.96 kg/m2 [facility] oximetry 2022-01-14 16:00:00 96 % [facility] respiratory rate 2022-01-14 16:00:00 16 /min Comm on [facility] blood pressure 2022-01-14 16:00:00 112 mm[Hg] [facility] systolic [facility] blood pressure 2022-01-14 16:00:00 75 mm[Hg] [facility] diastolic [facility] Procedures Procedure Date / Time Performed Performing Clinician [facility] e MEDICAL 2023-06-06 05:01:00 Doctor Unassigned, No [facility] RELEASE/CLEARANCE Name Medical Branch FORMS HB ECG ROUTINE & 2023-02-24 19:28:[address] [facility] RHYTHM STRIP Medical Branch ASSIGNMENT OF BENEFITS 2023-02-24 14:40:46 Doctor Unassigned, No [facility] Name [facility] Plan of Care Planned Activity Planned Date Details Comments Source Future Scheduled 2023-07-11 [facility] Test 02:57:12 malignant neoplasm of colon (procedure) [code = 374429316] Future Scheduled 2023-07-11 [facility] Test 02:57:12 malignant neoplasm of colon (procedure) [code = 094934996] Future Scheduled 2023-07-11 COVID-19 VACCINE (#1) [facility] Test 02:57:12 [code = COVID-19 VACCINE (#1)] Future Scheduled 2023-07-11 [facility] Test 02:57:12 malignant neoplasm of colon (procedure) [code = 363352083] Future Scheduled 2023-07-11 SHINGLES VACCINES (1 [facility] Test 02:57:12 of 2) [code = SHINGLES VACCINES (1 of 2)] Future Scheduled 2023-07-11 65+ [facility]UMOCOCCAL [facility] Test 02:57:12 VACCINE (1 - PCV) [code = 65+ PNEUMOCOCCAL VACCINE (1 - PCV)] Future Scheduled 2023-07-11 [facility] Test 02:57:12 malignant neoplasm of colon (procedure) [code = 547211508] Future Scheduled 2023-07-11 [facility] Test 02:57:12 malignant neoplasm of colon (procedure) [code = 804948203] Future Scheduled 2023-07-11 [facility]UEN[facility]INE (#[facility] 02:57:12 [code = INFLUENZA VACCINE (#1)] Future Scheduled 2023-05-05 [facility] Test 10:00:26 malignant neoplasm of colon (procedure) [code = 353870965] Future Scheduled 2023-05-05 [facility] Test 10:00:26 malignant neoplasm of colon (procedure) [code = 052193877] Future Scheduled 2023-05-05 COVID-19 VACCINE (#1) [facility] Test 10:00:26 [code = COVID-19 VACCINE (#1)] Future Scheduled 2023-05-05 [facility] Test 10:00:26 malignant neoplasm of colon (procedure) [code = 532297226] Future Scheduled 2023-05-05 SHINGLES VACCINES (1 [facility] Test 10:00:26 of 2) [code = SHINGLES VACCINES (1 of 2)] Future Scheduled 2023-05-05 65+ [facility]UMOCOCCAL [facility] Test 10:00:26 VACCINE (1 - PCV) [code = 65+ PNEUMOCOCCAL VACCINE (1 - PCV)] Future Scheduled 2023-05-05 [facility] Test 10:00:26 malignant neoplasm of colon (procedure) [code = 895729950] Future Scheduled 2023-05-05 [facility] Test 10:00:26 malignant neoplasm of colon (procedure) [code = 298380646] Future Scheduled 2023-05-05 INFLUENZA VACCINE [facility] Test 10:00:26 [code = INFLUENZA VACCINE] Encounters Start End Encounter Admission Attending Care Care Encounter Source Date/Time Date/Time Type Type Clinicians Facility Department ID 2023-06-03 Outpatient Seymour, STLMLC STLMLC [id number] Common 15:56:[address] [facility] 2023-02-01 Outpatient Seymour, STLMLC STLMLC [id number] Common 12:59:00 [facility] [address] [facility] 2023-01-19 Outpatient Seymour, STLMLC STLMLC [id number] Common 09:08:[address] [facility] 2023-01-12 Outpatient Seymour, STLMLC STLMLC [id number] Common 13:25:[address] [facility] 2022-12-08 Outpatient Seymour, STLMLC STLMLC [id number] Common 11:56:[address] [facility] 2022-09-16 Outpatient STLMLC STLMLC [id number] Common 13:35:02 [facility] 2022-09-10 Outpatient Johns, Na STLMLC STLMLC [id number] Common 13:49:00 [facility] 2022-01-13 Outpatient Johns, Na STLMLC STLMLC [id number] Common 10:45:01 [facility] 2021-12-09 Outpatient Johns, Na STLMLC STLMLC [id number] Common 12:28:[address] [facility] 2021-12-09 Outpatient Johns, Na STLMLC STLMLC [id number] Common 12:10:[address] [facility] 2021-12-09 Outpatient Johns, Na STLMLC STLMLC [id number] Common 11:29:[id number] [facility] 2024-02-27 2024-02-27 Outpatient Ryan HOLMAN [facility] [id number] Univers 10:20:00 10:20:00 DANA meza [facility] 2023-09-08 2023-09-08 Outpatient R SEWANI, [facility] [id number] Univers 09:00:00 09:00:00 SCOTT ity of [facility] 2023-06-06 2023-06-06 Orders Doctor CHANDNI [id number] Univers 00:00:00 00:00:00 Only Unassigned, AGUEDA [id number] ity of [facility] [id number] Nico as [id number] [address] 2023-06-03 2023-06-03 [facility] [id number] Univers 00:00:00 00:00:00 Qiaroberta MASCORRO [id number] ity of [facility] 4.2.7.2.686 [place] [phone] [place] dical NAL [address] [place] [address] 2023-03-17 2023-03-17 Outpatient R MANDA, [facility] [id number] Univers 10:00:00 10:00:00 FLORINAROBERTA joelkate o [facility] 2023-03-17 2023-03-17 Outpatient R MANDA, [facility] [id number] Univers 10:00:00 10:00:00 DANA ravi o [facility] 2023-02-24 2023-02-24 Outpatient R MANDA, [facility] [id number] Univers 14:20:00 14:48:41 FLORINAROBERTA ravi o [facility] 2023-02-24 2023-02-24 Office [facility] [id number] Univers 14:20:00 14:48:41 Visit Dana MASCORRO [id number] ity of [facility] 4.2.7.2.[place] [phone] N[place] dical NAL [address] [place] [address] 2023-02-24 2023-02-24 Orders Doctor CHANDNI [id number] Univers 00:00:00 00:00:00 Only Unassigned, AGUEDA 350.1.13.10 [facility]y [facility] [place] [facility] 4.2.7.2.686 Nico as [phone] [address] 2023-02-22 2023-02-22 Telephone [facility] [id number] Univers 00:00:00 00:00:00 Dana KAPOORJAMIR 350.1.13.10 ity [facility] 4[place]7.[place] [id number] [place] dicma NAL 9 [facility] 2022-12-30 2022-12-30 [facility]patient [facility] [id number] Univers 10:00:00 10:00:00 SCOTT ity [facility] 2022-12-08 2022-12-08 (TEL) STLMLC STLMLC [id number] Co mmon 00:00:00 00:00:00 [facility] 2022-09-14 2022-09-14 OFFICE STLMLC STLMLC [id number] Co mmon 00:00:00 00:00:00 VISIT [facility] LEVEL 4 [facility] 2022-09-14 2022-09-14 (TEL) STLMLC STLMLC [id number] Co mmon 00:00:00 00:00:00 [facility] 2022-08-18 2022-08-18 (TEL) STLMLC STLMLC [id number] Co mmon 00:00:00 00:00:00 [facility] 2022-07-29 2022-07-29 Telephone [facility] [id number] Univers 00:00:00 00:00:00 [facility] [place] [id number] ity [facility] [id number] [phone] [place] N[place] [address] [place] [address] 2022-07-29 2022-07-29 (TEL) STLMLC STLMLC [id number] Co mmon 00:00:00 00:00:00 [facility] 2022-07-02 2022-07-02 [facility] [id number] Univers 09:00:00 23:59:00 SCOTT ity [facility] 2022-04-06 2022-04-06 Telephone Manda, [facility] [id number] Univers 00:00:00 00:00:00 Dana MASCORRO [id number] ity of [facility] [id number] [id number] [address] 2022-04-05 2022-04-05 Outpatient R MANDA, [facility] [id number] Univers 11:00:00 23:59:00 DANA ity o [facility] 2022-04-05 2022-04-05 Outpatient R MANDA, [facility] [id number] Univers 11:00:00 23:59:00 DANA maldonadoy o [facility] 2022-03-25 2022-03-25 Outpatient R MANDA, [facility] [id number] Univers 08:00:00 08:00:00 DAAN maldonadoy o [facility] 2022-03-17 2022-03-17 Office Manda, [facility] [id number] Univers 09:20:00 10:00:43 Visit Dana KAPOORJAMIR [id number] ity of [id number] [phone] [address] 2022-03-17 2022-03-17 Outpatient R MANDA, [facility] [id number] Univers 09:20:00 10:00:43 DANA maldonadoy o [facility] 2022-03-17 2022-03-17 Outpatient R MANDA, [facility] [id number] Univers 09:20:00 10:00:43 DANA maldonadoy o [facility] 2022-03-17 2022-03-17 Outpatient R MANDA, [facility] [id number] Univers 09:20:00 09:20:00 DANA maldonadoy o [facility] 2022-02-23 2022-02-23 Outpatient R MANDA, [facility] [id number] Univers 13:40:00 13:40:00 DANA maldonadoy o [facility] 2022-01-14 2022-01-14 OFFICE STLMLC STLMLC [id number] Co mmon 00:00:00 00:00:00 VISIT [facility] LEVEL 4 [facility] 2022-01-08 2022-01-08 Outpatient R CHERI [facility] [id number] Univers 10:00:00 23:59:00 SCOTT ity [facility] 2022-01-08 2022-01-08 Orders Doctor CHANDNI [id number] Univers 00:00:00 00:00:00 Only Unassigned, AGUEDA [id number] [facility] [id number] [place] [id number] [address] 2022-01-06 2022-01-06 (TEL) STLMLC STLMLC [id number] Co mmon 00:00:00 00:00:00 [facility] 2021-12-07 2021-12-07 (TEL) STLMLC STLMLC [id number] Co mmon 00:00:00 00:00:00 [facility] 2021-09-29 2021-09-29 (TEL) STLMLC STLMLC [id number] Co mmon 00:00:00 00:00:00 [facility] 2021-07-28 2021-07-28 Outpatient R CHERI [facility] [id number] Univers 14:40:00 14:40:00 SCOTT [facility] 2021-06-04 2021-06-04 Outpatient STLMLC STLMLC [id number] Common 00:00:00 00:00:00 [facility] 2021-03-27 2021-03-27 Outpatient R CHERRI [facility] [id number] Univers 09:30:00 09:30:00 [facility] 2021-03-24 2021-03-24 Outpatient R [facility] [id number] Univers 13:40:00 13:40:00 ity [facility] 2021-03-24 2021-03-24 Outpatient R CHERI [facility] [id number] Univers 13:30:00 13:30:00 [facility] 2021-03-09 2021-03-09 Outpatient R MANDA [facility] [id number] Univers 09:40:00 09:40:00 DANA rodrigues o f [facility] 2021-03-02 2021-03-02 Outpatient R PERLA ODONNELL [facility] [id number] Univers 13:00:00 13:00:00 PERLA ODONNELL [facility] 2021-01-17 2021-01-17 Outpatient [facility] [id number] Univers 10:45:00 10:45:00 ity [facility] 2020-12-20 2020-12-20 Outpatient [facility] [id number] Univers 10:40:00 10:40:00 [facility] 2020-12-17 2020-12-17 Outpatient STLMLC STLMLC [id number] Common 00:00:00 00:00:00 [facility] 2020-12-02 2020-12-02 Outpatient STLMLC STLMLC [id number] Common 00:00:00 00:00:00 [facility] 2020-10-21 2020-10-21 Outpatient STLMLC STLMLC [id number] Common 00:00:00 00:00:00 [facility] 2020-09-23 2020-09-23 Outpatient R [facility] [id number] Univers 13:30:00 13:30:00 [facility] 2020-05-20 2020-05-20 Out[facility] [id number] Common 04:10:00 04:10:00 t [employer] [facility] it Drive [facility] 2020-05-13 2020-05-13 Outpatient [facility] [id number] Common 10:40:00 10:40:00 t [employer] [facility] it Drive [facility] 2020-05-09 2020-05-09 Outpatient R [facility] [id number] Univers 09:15:00 09:[facility] 2020-04-09 2020-04-09 Out[facility] [id number] Common 16:45:00 16:45:[address] [facility] [address] [facility] 2020-03-05 2020-03-05 Outpatient Ryan MANDA [facility] [id number] Univers 10:00:00 10:00:00 DANA ity o f [facility] 2019-11-05 2019-11-05 Out[facility] [id number] Common 17:28:00 17:28:[address] [facility] 2019-10-31 2019-10-31 Outpatient [facility] [id number] Common 10:00:00 10:00:[address] [facility] 2019-10-16 2019-10-16 Outpatient [facility] [id number] Common 10:00:00 10:00:[address] [facility] 2019-05-08 2019-05-08 Outpatient [facility] [id number] Common 16:40:00 16:40:[address] [facility] 2019-01-30 2019-01-30 Outpatient [facility] [id number] Common 09:51:00 09:51:[address] [facility] 2018-11-17 2018-11-17 Outpatient [facility] [id number] Common 10:30:00 10:30:[address] [facility] 2018-04-11 2018-04-11 Outpatient [facility] [id number] Common 14:03:00 14:03:[address] [facility] 2018-03-20 2018-03-20 Outpatient [facility] [id number] Common 15:15:00 15:15:[address] [facility] Results This patient has no known results. Notes Date/Time Note Provider Source 2023-06-06 Formatting of this note might be differe nt from the original. Lissett Alan MA [facility] - Health 08:04:33-00:00 Sent cardiac clearance via f ax to [facility] [employer] Treasury Director. Scanned into patient ADC chart along with confirmation. Electronically signed by Lissett Alan MA a t 06/06/2023 8:05 AM CDT 2023-06-03 Formatting of this note might be differe nt from the original. Lissett Alan MA [facility] 16:14:29-00:00 Received cardiac clearance r demetri from [facility] Treasury Director, will put on Dr. Manda friend for further assistance. Electronically signed by Lissett Alan MA a t 06/03/2023 4:16 PM CDT
[2023-07-12] MEDS ORDERED: TETRACAINE HCL 0.5% 4ML OPTH ONE (19:24)
[2023-07-12] MEDS ORDERED: FLUORESCEIN SODIUM 1 MG/WRAP ONE (19:24)
--- NOTE | 2023-07-12 19:58 | EDPHYS ---
Physician Documentation [facility] Name: Shyann Hardin Age: 72 yrs Sex: Male : 1950 Arrival Date: 07/12/2023 Time: 18:34 Bed 19 Private MD: ED Physician Audrey Seymour HPI: 07/12 20:44 This 72 yrs old Male presents to ER via Ambulatory with complaints of Eye Problem. kb 20:44 The patient is experiencing pain, The patient sustained None. to the right eye, caused kb by an unknown mechanism. Onset: The symptoms/episode began/occurred today, at 16:00. Duration: the symptoms are continuous. Aggravated by nothing. Alleviated by nothing. Associated signs and symptoms: Pertinent positives: None. Patient does not utilize any form of vision correction. Severity of symptoms: At their worst the symptoms were moderate in the emergency department the symptoms are unchanged. The patient has not experienced similar symptoms in the past. The patient has not recently seen a physician. Historical: - Allergies: 18:43 PENICILLINS; cm10 - PMHx: 18:43 Anxiety; Diverticulitis; GERD; High Cholesterol; Sleep Apnea; Thyroid problem; TIA; X2; cm10 - PSHx: 18:43 hernia repair; pacemaker; cm10 - Immunization history:: Adult Immunizations up to date. - Social history:: Smoking status: Patient denies any tobacco usage or history of. ROS: 20:42 Constitutional: Negative for fever, chills, and weight loss. kb 20:42 Eyes: Positive for pain, of the right eye. 20:42 All other systems are negative. Exam: 20:42 Constitutional: This is a well developed, well nourished patient who is awake, alert, kb and in no acute distress. Head/Face: Normocephalic, atraumatic. ENT: Moist Mucous membranes Cardiovascular: Regular rate and rhythm with a normal S1 and S2. No gallops, murmurs, or rubs. No pulse deficits. Respiratory: Respirations even and unlabored. No increased work of breathing. Talking in full sentences Skin: Warm, dry with normal turgor. Normal color. MS/ Extremity: Pulses equal, no cyanosis. Neurovascular intact. Full, normal range of motion. Neuro: Awake and alert, GCS 15, oriented to person, place, time, and situation. Moves all extremities. Normal gait. 20:42 Eyes: Periorbital structures: appear normal, Pupils: equal, round, and reactive to light and accomodation, Extraocular movements: intact throughout, Conjunctiva: normal, Corneas: abrasion, is not appreciated, foreign body, is not appreciated, a fluorescein strip employed to appreciate the findings, Intraocular pressure: right eye = 15mmHg. Vital Signs: 18:42 BP 106 / 81; Pulse 76; Resp 16; Temp 97.9; Pulse Ox 98% ; Weight 74.84 kg; Height 5 ft. cm10 8 in. ; Pain 2/10; 18:42 Body Mass Index 25.09 (74.84 kg, 172.72 cm) cm10 18:42 Pain Scale: Adult cm10 MDM: 18:49 Patient medically screened. kb 20:43 Differential diagnosis: Corneal abrasion of Corneal ulcer of Foreign body in Acute kb iritis of Acute glaucoma in. Data reviewed: vital signs, nurses notes. Counseling: I had a detailed discussion with the patient and/or guardian regarding the historical points, exam findings, and any diagnostic results supporting the discharge/admit diagnosis, the need for outpatient follow up, an opthalmologist, to return to the emergency department if symptoms worsen or persist or if there are any questions or concerns that arise at home. 07/12 18:50 Order name: Eye Tray; Complete Time: 19:16 kb 07/12 18:50 Order name: Fluoresene Opth strip; Complete Time: 19:16 kb Administered Medications: 19:16 Drug: Tetracaine Ophthalmic Drops 0.5 % 1 drops Route: Ophthalmic; Site: both eyes; bp Disposition Summary: 07/12/23 19:57 Discharge Ordered Location: Home kb Condition: Stable kb Diagnosis - Ocular pain, right eye kb Followup: kb - With: Emergency Department - When: As needed - Reason: Worsening of condition Followup: kb - With: Private Physician - When: 2 - 3 days - Reason: Recheck today's complaints, Continuance of care, Re-evaluation by your physician Followup: kb - With: Mariano Yadav MD - When: 1 - 2 days - Reason: Recheck today's complaints Discharge Instructions: - Discharge Summary Sheet kb - Pain Without a Known Cause kb Forms: - Medication Reconciliation Form kb - Thank You Letter kb - Antibiotic Education kb - Prescription Opioid Use kb - Patient Portal Instructions kb - Leadership Thank You Letter kb Prescriptions: - Tramadol 50 mg Oral Tablet - take 1 tablet by ORAL route every 8 hours As needed as needed; 5 tablet; kb Refills: 0, Product Selection Permitted Signatures: Fannie Noguera, Garrick Leal, RN RN bp Hannah Willett RN RN cm10
--- NOTE | 2023-07-12 19:58 | ER ---
Nurse's Notes [facility] Name: Shyann Hardin Age: 72 yrs Sex: Male : 1950 Arrival Date: 07/12/2023 Time: 18:34 Bed 19 Private MD: Diagnosis: Ocular pain, right eye Presentation: 07/12 18:42 Chief complaint: Patient states: right eye pain onset today at 1600. Pt denies any cm10 trauma or injury. No vision changes. Coronavirus screen: Vaccine status: Patient reports receiving the 2nd dose of the covid vaccine. Client denies travel out of the [place] in the last 14 days. Ebola Screen: Patient denies travel to an Ebola-affected area in the 21 days before illness onset. No symptoms or risks identified at this time. Initial Sepsis Screen: Does the patient meet any 2 criteria? No. Patient's initial sepsis screen is negative. Does the patient have a suspected source of infection? No. Patient's initial sepsis screen is negative. Risk Assessment: Do you want to hurt yourself or someone else? Patient reports no desire to harm self or others. Onset of symptoms was July 12, 2023. 18:42 Method Of Arrival: Ambulatory cm10 18:42 Acuity: AIRAM 4 cm10 Triage Assessment: 20:12 General: Appears in no apparent distress. Behavior is calm, cooperative. kl Historical: - Allergies: 18:43 PENICILLINS; cm10 - PMHx: 18:43 Anxiety; Diverticulitis; GERD; High Cholesterol; Sleep Apnea; Thyroid problem; TIA; X2; cm10 - PSHx: 18:43 hernia repair; pacemaker; cm10 - Immunization history:: Adult Immunizations up to date. - Social history:: Smoking status: Patient denies any tobacco usage or history of. Screenin:11 [facility] ED Fall Risk Assessment (Adult) History of falling in the last 3 months, including since admission No falls in past 3 months (0 pts) Confusion or Disorientation No (0 pts) Intoxicated or Sedated No (0 pts) Impaired Gait No (0 pts) Mobility Assist Device Used No (0 pt) Altered Elimination No (0 pt) Score/Fall Risk Level 0 - 2 = Low Risk. Abuse screen: Denies threats or abuse. Nutritional screening: No deficits noted. Tuberculosis screening: No symptoms or risk factors identified. Assessment: 20:11 Reassessment: Patient appears in no apparent distress at this time. Pain: Denies pain. franchesca EENT: Denies blurred vision Parent/caregiver reports the patient having. Vital Signs: 18:42 BP 106 / 81; Pulse 76; Resp 16; Temp 97.9; Pulse Ox 98% ; Weight 74.84 kg; Height 5 ft. cm10 8 in. ; Pain 2/10; 18:42 Body Mass Index 25.09 (74.84 kg, 172.72 cm) cm10 18:42 Pain Scale: Adult cm10 ED Course: 18:37 Patient arrived in ED. kj1 18:43 Triage completed. cm10 18:44 Arm band placed on Patient placed in waiting room. cm10 18:49 Fannie Noguera FNP-C is [facility]. kb 18:49 Audrey Seymour MD is Attending Physician. kb 19:11 Garrick Ac, RN is Primary Nurse. bp 20:02 Mariano Yadav MD is Referral Physician. kb 20:11 Assist provider with eye exam of right eye. using ophthalmoscope, Performed by Fannie SEGOVIA Patient tolerated well. Patient did not have IV access during this emergency room visit. Administered Medications: 19:16 Drug: Tetracaine Ophthalmic Drops 0.5 % 1 drops Route: Ophthalmic; Site: both eyes; bp Outcome: 19:57 Discharge ordered by . kb 20:11 Discharged to home ambulatory. kl 20:11 Condition: stable 20:11 Discharge instructions given to patient, Instructed on discharge instructions, follow up and referral plans. medication usage, Demonstrated understanding of instructions, follow-up care, medications, Prescriptions given X 1. 20:12 Patient left the ED. kl Signatures: Fannie Noguera FNP-C FNP-Ckb Lewis, Kimberly, RN RN kl Peltier, Brian RN Christina Colvin [facility] Hannah Willett RN RN cm10
[2023-07-12 20:39] VITALS: BP 106/81; TEMP 97.9; O2SAT 98
== END 2023-07-12 20:12 | disposition home or self-care (01) ==
LOC: ER 18:34
DX: H57.11 Ocular pain, right eye (principal); Z88.0 Allergy status to penicillin; Z95.0 Presence of cardiac pacemaker

== ENCOUNTER 2024-06-23 09:38 | Emergency (ER) | payer OTHER ==
[2024-06-23 10:43] LABS: Albumin 3.5 g/dL (3.4-5.0); Anion Gap 7.7 mEq/L (5.0-15.0); Bilirubin Total 0.9 mg/dL (0.2-1.0); Globulin 3.5 g/dL (2.3-3.5); Potassium 3.7 mEq/L (3.5-5.1)
[2024-06-23 10:45] LABS: Absolute Eosinophils 0.1 K/uL (0-0.5); Absolute Lymphocytes (CBC) 2.3 K/uL (0.7-4.9); Absolute Monocytes 0.7 K/uL (0.1-1.3); Absolute Neutrophil 6.1 K/uL (1.8-8.0); Basophils % 0.2 % (0-1.3); Eosinophils % 0.9 % (0-4.4); Hematocrit 43.9 % (39.6-49.0); Hemoglobin 14.6 g/dL (13.6-17.9); Lymphocytes % 25.2 % (15.3-44.8); MCH 31.4 pg (27.0-35.0); MCHC 33.2 g/dL (32.0-36.0); MCV 94.6 fL (80-100); MPV 9.4 fL (7.6-11.3); Monocytes % 7.4 % (3.3-12.3); Neutrophils % 66.3 % (41.7-73.7); Platelets 159 thou/uL (152-406); RBC Red Blood Cell Count 4.64 M/uL (4.33-5.43); Red Cell Distribution Width 13.3 % (12.1-15.2)
--- NOTE | 2024-06-23 11:54 | RAD REPORT ---
EXAM DESCRIPTION: CT - Abdomen Pelvis W Contrast - 06/23/2024 11:19 am CLINICAL HISTORY: Abdominal pain COMPARISON: 2022 TECHNIQUE: Computed axial tomography of the abdomen pelvis was obtained. 100 cc Isovue-300 was admin istered intravenously. Oral contrast was not requested which limits evaluation of bowel and appendix All CT scans are performed using dose optimization technique as appropriate and may include automated exposure control or mA/KV adjustment according to patient size. FINDINGS: 2.3 centimeter low-density lesion dome left lobe liver probably hemangioma. Spleen, pancreas, adrenals and kidneys unremarkable Small to moderate right inguinal hernia contains a portion bladder. Left inguinal hernia repair. Diverticula stem from the colon. Mild to moderate stranding adjacent to the distal descending colon c ompatible with diverticulitis. No free air. No abscess 8 millimeter sclerotic foci L2 vertebral body unchanged IMPRESSION: [id number] descending colon diverticulitis 8 millimeter area sclerosis L2 vertebral body could be benign or slow-growing blastic metastasis. Small to moderate right inguinal hernia containing a portion of bladder
[2024-06-23] MEDS ORDERED: NA CHLORIDE 0.9% 1,000 ML ONE (12:37)
[2024-06-23] MEDS ORDERED: METRONIDAZOLE 500mg IVPB 500 MG/100 ML BAG IV ONE (12:37)
[2024-06-23 12:53] LABS: Specific Gravity > 1.030 (1.005-1.030); Sqamous Epithelial None Seen /HPF (None Seen); Urine Bacteria <20 /HPF (<20); Urine Bilirubin NEGATIVE (Negative); Urine Blood Negative (Negative); Urine Clarity Clear (Clear); Urine Color Light-Yellow (Yellow); Urine Culture Reflex Order NOT NEEDED; Urine Glucose NEGATIVE (Negative); Urine Ketones NEGATIVE (Negative); Urine Microscopic Reflex YN ORDER UMIC; Urine Mucus Slight /HPF (None Seen); Urine Nitrite NEGATIVE (Negative); Urine Protein NEGATIVE (Negative); Urine RBC <5 /HPF (None Seen); Urine Urobilinogen Normal (Normal); Urine WBC <5 /HPF (<5); Urine pH 6.5 (5.0-7.0)
--- NOTE | 2024-06-23 13:01 | ER ---
Nurse's Notes [facility] Name: Shyann Hardin Age: 73 yrs Sex: Male : 1950 Arrival Date: 06/23/2024 Time: 09:38 Bed 8 Private MD: Diagnosis: Diverticulitis of large intestine without perforation or abscess without bleeding Presentation: 06/23 09:52 Chief complaint: Lower abdominal pain and diarrhea x 2 days. Coronavirus screen: At hb this time, the client does not indicate any symptoms associated with coronavirus-19. Ebola Screen: No symptoms or risks identified at this time. 09:52 Method Of Arrival: Ambulatory hb 09:52 Initial Sepsis Screen: Does the patient meet any 2 criteria? No. Patient's initial hb sepsis screen is negative. Does the patient have a suspected source of infection? No. Patient's initial sepsis screen is negative. Risk Assessment: Do you want to hurt yourself or someone else? Patient reports no desire to harm self or others. Onset of symptoms was June 22, 2024. 09:52 Acuity: AIRAM 3 hb Historical: - Allergies: 10:30 PENICILLINS; nj1 - PMHx: 10:30 Diverticulitis; GERD; High Cholesterol; TIA; X2; Grave's Disease (Unknown); nj1 - PSHx: 10:30 hernia repair; pacemaker; nj1 - Immunization history:: Client reports receiving the 2nd dose of the Covid vaccine. - Infectious Disease History:: Denies. - Social history:: Smoking status: Patient denies any tobacco usage or history of. Screenin:25 [facility] ED Fall Risk Assessment (Adult) History of falling in the last 3 months, nj1 including since admission No falls in past 3 months (0 pts) Confusion or Disorientation No (0 pts) Intoxicated or Sedated No (0 pts) Impaired Gait No (0 pts) Mobility Assist Device Used No (0 pt) Altered Elimination No (0 pt) Score/Fall Risk Level 0 - 2 = Low Risk Oriented to surroundings, Maintained a safe environment, Hourly rounding (assess needs \T\ fall precautionary measures) done. Abuse screen: Denies threats or abuse. Denies injuries from another. Nutritional screening: No deficits noted. Tuberculosis screening: No symptoms or risk factors identified. Assessment: 10:00 General: Appears in no apparent distress. comfortable, Behavior is calm, cooperative, nj1 appropriate for age. 10:00 Pain: Complains of pain in abdomen Pain currently is 4 out of 10 on a pain scale. nj1 Neuro: Level of Consciousness is awake, alert, obeys commands, Oriented to person, place, time, situation. Cardiovascular: Patient's skin is warm and dry. Respiratory: Airway is patent Respiratory effort is even, unlabored. GI: Reports lower abdominal pain, Patient currently denies diarrhea, nausea, vomiting. 10:59 Reassessment: Patient appears in no apparent distress at this time. Patient and/or nj1 family updated on plan of care and expected duration. Pain level reassessed. Patient is alert, oriented x 3, equal unlabored respirations, skin warm/dry/pink. 12:50 Reassessment: Patient appears in no apparent distress at this time. Patient and/or nj1 family updated on plan of care and expected duration. Pain level reassessed. Patient is alert, oriented x 3, equal unlabored respirations, skin warm/dry/pink. 13:04 Reassessment: Discharge on hold, IVF and abx infusing. nj1 13:45 Reassessment: Patient appears in no apparent distress at this time. Patient and/or nj1 family updated on plan of care and expected duration. Pain level reassessed. Patient is alert, oriented x 3, equal unlabored respirations, skin warm/dry/pink. Vital Signs: 09:52 BP 126 / 85; Pulse 82; Resp 16; Temp 97.3; Pulse Ox 100% on R/A; Weight 74.84 kg; hb Height 5 ft. 8 in. ; Pain 5/10; 10:59 BP 121 / 75; Pulse 59; Resp 18; Pulse Ox 96% on R/A; nj1 12:50 BP 127 / 92; Pulse 67; Resp 18; Pulse Ox 100% on R/A; nj1 13:45 BP 111 / 80; Pulse 63; Resp 18; Pulse Ox 99% on R/A; nj1 09:52 Body Mass Index 25.09 (74.84 kg, 172.72 cm) hb 09:52 Pain Scale: Adult hb ED Course: 09:44 Patient arrived in ED. ra3 09:44 [facility]al [facility] sb4 09:44 Lucian aMdrid MD is Attending Physician. sb4 09:47 Lesly Diana, RN is Primary Nurse. nj1 09:55 Arm band placed on. hb 09:58 Triage completed. hb 10:00 Patient has correct armband on for positive identification. Bed in low position. Call nj1 light in reach. 10:00 Provided Education on: call light, fall precautions. nj1 10:06 Inserted saline lock: 20 gauge in right forearm, using aseptic technique. Blood nj1 collected. Flushed with 10 mL NS. 11:21 CT Abd/Pelvis - IV Contrast Only In Process Unspecified. EDMS 13:01 Mitchell Kent MD is Referral Physician. sb4 14:09 No provider procedures requiring assistance completed. IV discontinued, intact, ko1 bleeding controlled, No redness/swelling at site. Pressure dressing applied. Administered Medications: 12:45 Drug: NS 0.9% IV 1000 ml IV at 1 bolus Per protocol; 1000 mL bolus Route: IV; Rate: 1 nj1 bolus; Site: right forearm; 14:07 Follow up: IV Status: Completed infusion; IV Intake: 1000ml nj1 12:49 Drug: metroNIDAZOLE IVPB 500 mg 100 ml IVPB at 200 ml/hr once over 30 mins Volume: 100 nj1 ml; Route: IVPB; Rate: 200 ml/hr; Infused Over: 30 mins; Site: right forearm; 14:08 Follow up: Response: No adverse reaction; IV Status: Completed infusion; IV Intake: nj1 100ml Medication: 14:09 VIS not applicable for this client. ko1 Intake: 14:07 IV: 1000ml; Total: 1000ml. nj1 14:08 IV: 100ml; Total: 1100ml. nj1 Outcome: 13:01 Discharge ordered by . sb4 14:10 Discharged to home ambulatory, ko1 14:10 Condition: stable 14:10 Discharge instructions given to patient, Instructed on discharge instructions, follow up and referral plans. medication usage, Demonstrated understanding of instructions, follow-up care, medications, Prescriptions given X 2, 14:11 Patient left the ED. ko1 Signatures: Dispatcher [employer] EDAZ Aissatou Potter RN RN Alta Landa RN RN ko1 Cailin Leal, PA-C PA-C sb4 Lesly Diana RN RN nj1 Vonda Hassan ra3 Corrections: (The following items were deleted from the chart) 09:58 09:52 BP 126 / 85; Pulse 82bpm; Resp 16bpm; Pulse Ox 100% RA; Temp 97.3F; Pain 5/10, hb Adult; hb 10:27 10:06 Inserted saline lock: 20 gauge in right antecubital area, using aseptic nj1 technique. Blood collected. Flushed with 10 mL NS nj1
--- NOTE | 2024-06-23 13:01 | EDPHYS ---
Physician Documentation [facility] Name: Shyann Hardin Age: 73 yrs Sex: Male : 1950 Arrival Date: 06/23/2024 Time: 09:38 Bed 8 Private MD: DHARA Physician Lucian Madrid HPI: 06/23 09:56 This 73 yrs old Male presents to ER via Ambulatory with complaints of Abdominal Pain. sb4 09:56 The patient presents with abdominal pain in the lower abdomen, abdominal distention in sb4 the lower abdomen. Onset: The symptoms/episode began/occurred yesterday. The symptoms do not radiate. Associated signs and symptoms: Pertinent positives: diarrhea, Pertinent negatives: nausea and vomiting, blood in stools, fever. The symptoms are described as crampy. Modifying factors: The symptoms are alleviated by nothing, the symptoms are aggravated by nothing. The patient has experienced similar episodes in the past, a few times, with the last episode occurring many years ago. The patient has not recently seen a physician. Historical: - Allergies: 10:30 PENICILLINS; nj1 - PMHx: 10:30 Diverticulitis; GERD; High Cholesterol; TIA; X2; Grave's Disease (Unknown); nj1 - PSHx: 10:30 hernia repair; pacemaker; nj1 - Immunization history:: Client reports receiving the 2nd dose of the Covid vaccine. - Infectious Disease History:: Denies. - Social history:: Smoking status: Patient denies any tobacco usage or history of. ROS: 09:56 Constitutional: Negative for fever, chills, and weight loss, sb4 09:56 Abdomen/GI: Positive for abdominal pain, diarrhea, abdominal cramps, abdominal distension, 09:56 All other systems are negative, Exam: 09:56 Constitutional: This is a well developed, well nourished patient who is awake, alert, sb4 and in no acute distress. Head/Face: Normocephalic, atraumatic. Eyes: Extra-ocular motions intact. Periorbital areas with no swelling, redness, or edema. ENT: Mucous membranes moist. Cardiovascular: Regular rate and rhythm with a normal S1 and S2. Respiratory: Lungs have equal breath sounds bilaterally, clear to auscultation and percussion. No rales, rhonchi or wheezes noted. No increased work of breathing, no retractions or nasal flaring. Skin: Warm, dry with normal turgor. Normal color with no rashes, no lesions, and no evidence of cellulitis. MS/ Extremity: Pulses equal, no cyanosis. Neurovascular intact. Full, normal range of motion. 09:56 Abdomen/GI: Inspection: distension, that is mild, in the right lower quadrant and left lower quadrant, Bowel sounds: normal, Palpation: soft, mild abdominal tenderness, in the left lower quadrant, Vital Signs: 09:52 BP 126 / 85; Pulse 82; Resp 16; Temp 97.3; Pulse Ox 100% on R/A; Weight 74.84 kg; hb Height 5 ft. 8 in. ; Pain 5/10; 10:59 BP 121 / 75; Pulse 59; Resp 18; Pulse Ox 96% on R/A; nj1 12:50 BP 127 / 92; Pulse 67; Resp 18; Pulse Ox 100% on R/A; nj1 13:45 BP 111 / 80; Pulse 63; Resp 18; Pulse Ox 99% on R/A; nj1 09:52 Body Mass Index 25.09 (74.84 kg, 172.72 cm) hb 09:52 Pain Scale: Adult hb MDM: 09:44 Patient medically screened. sb4 13:01 Data reviewed: vital signs, nurses notes, lab test result(s), radiologic studies, and sb4 as a result, I will discharge patient. Counseling: I had a detailed discussion with the patient and/or guardian regarding the historical points, exam findings, and any diagnostic results supporting the discharge/admit diagnosis, lab results, radiology results, the need for outpatient follow up, for definitive care, to return to the emergency department if symptoms worsen or persist or if there are any questions or concerns that arise at home. Special discussion: I discussed with the patient the need to follow-up with the PCP/specialist for the noted incidental finding on X-ray/CT scanning. 06/23 09:56 Order name: CBC with Diff; Complete Time: 10:49 sb4 06/23 09:56 Order name: CMP; Complete Time: 10:49 sb4 06/23 09:56 Order name: Lipase; Complete Time: 10:49 sb4 06/23 09:56 Order name: Urinalysis w/ reflexes; Complete Time: 12:54 sb4 06/23 09:56 Order name: CT Abd/Pelvis - IV Contrast Only; Complete Time: 11:57 sb4 06/23 09:56 Order name: IV Saline Lock; Complete Time: 10:26 sb4 06/23 09:56 Order name: Labs collected and sent; Complete Time: 10:26 sb4 Administered Medications: 12:45 Drug: NS 0.9% IV 1000 ml IV at 1 bolus Per protocol; 1000 mL bolus Route: IV; Rate: 1 nj1 bolus; Site: right forearm; 14:07 Follow up: IV Status: Completed infusion; IV Intake: 1000ml nj1 12:49 Drug: metroNIDAZOLE IVPB 500 mg 100 ml IVPB at 200 ml/hr once over 30 mins Volume: 100 nj1 ml; Route: IVPB; Rate: 200 ml/hr; Infused Over: 30 mins; Site: right forearm; 14:08 Follow up: Response: No adverse reaction; IV Status: Completed infusion; IV Intake: nj1 100ml Disposition Summary: 06/23/24 13:01 Discharge Ordered Notes: Location: Home sb4 Problem: an acute exacerbation sb4 Symptoms: have improved sb4 Condition: Stable sb4 Diagnosis - Diverticulitis of large intestine without perforation or abscess without bleeding sb4 Followup: sb4 - With: Mitchell Kent MD - When: 1 week - Reason: Recheck today's complaints, Re-evaluation by your physician Discharge Instructions: - Discharge Summary Sheet sb4 - Inguinal Hernia, Adult, [id number] sb4 - Diverticulitis, [id number] sb4 Forms: - Antibiotic Education sb4 - Patient Portal Instructions sb4 - Leadership Thank You Letter sb4 Prescriptions: - Flagyl 500 mg Oral Tablet - take 1 tablet ORAL route every 8 hours for 10 days; 30 tablet; Refills: 0, sb4 Product Selection Permitted - Cipro 500 mg Oral Tablet - take 1 tablet ORAL route every 12 hours for 7 days; 14 tablet; Refills: 0, sb4 Product Selection Permitted Signatures: Dispatcher [employer] Cailin Green PA-C PA-C sb4 Lesly Diana RN RN nj1 Corrections: (The following items were deleted from the chart) 09:58 09:56 Abdomen/GI: Inspection: distension, that is mild, in the right lower quadrant and sb4 left lower quadrant, Bowel sounds: normal, Palpation: abdomen is soft and non-tender, in all quadrants, sb4 10:18 10:18 Urinalysis W/Microscopic+U.LAB.BRZ ordered. EDMS EDMS
[2024-06-23 14:33] VITALS: TEMP 97.3
[2024-06-23 14:37] VITALS: BP 111/80; O2SAT 99
== END 2024-06-23 14:11 | disposition home or self-care (01) ==
LOC: ER 09:38
DX: K57.32 Diverticulitis of large intestine without perforation or abscess without bleeding (principal); Z95.0 Presence of cardiac pacemaker
CPT/HCPCS: 96365; 85025; 81001; 36415; 83690; 80053; 74177; 99284; Q9967; J7030

== ENCOUNTER 2025-08-03 06:21 | Emergency (ER) | payer OTHER ==
[2025-08-03] MEDS ORDERED: LORAZEPAM 0.5 MG TABLET ONE (06:53)
[2025-08-03 07:04] LABS: Absolute Lymphocytes (CBC) 2.7 K/uL (0.7-4.9); Hematocrit 44.1 % (39.6-49.0); Hemoglobin 15.2 g/dL (13.6-17.9); MCH 31.6 pg (27.0-35.0); MCHC 34.4 g/dL (32.0-36.0); MCV 91.8 fL (80-100); MPV 8.9 fL (7.6-11.3); Nucleated RBC Absolute Count 0.0 (0-0); Nucleated Red Blood Cells % 0.0 % (0-0); RBC Red Blood Cell Count 4.80 M/uL (4.33-5.43); White Blood Count 7.00 thou/uL (4.3-10.9)
--- NOTE | 2025-08-03 09:11 | RAD REPORT ---
EXAMINATION: ONE VIEW CHEST XR CLINICAL INDICATION: CHEST PAIN TECHNIQUE: Frontal chest projection is submitted. Examination is limited by patient positioning and t echnique. COMPARISON: 04/05/2017 FINDINGS: The lungs are well inflated and clear. The heart is normal in size. No displaced fractures identified . Dual lead pacer device. IMPRESSION: No acute intrathoracic abnormalities.
[2025-08-03 09:30] LABS: Anion Gap 7.8 mEq/L (5.0-15.0); BUN Blood Urea Nitrogen 21.0 mg/dL (7-18); Glucose Level 100.0 mg/dL (74-106); Potassium 3.8 mEq/L (3.5-5.1); Troponin High Sensitivity 3.8 pg/mL (<58.9)
--- NOTE | 2025-08-03 09:35 | EDPHYS ---
Physician Documentation [facility] Name: Shyann Hardin Age: 74 yrs Sex: Male : 1950 Arrival Date: 08/03/2025 Time: 06:21 Bed 13 Private MD: ED Physician Geovany Elmore HPI: 08/03 07:25 This 74 yrs old Male presents to ER via Ambulatory with complaints of Pace maker rn problem. 07:25 The patient presents to the emergency department with anxiety. Patient reports feeling rn anxiousness for the last 2 nights. Has a history of anxiety. This has happened before multiple times in the past. States 1 time happened and he was evaluated and that is when he needed his pacemaker for bradycardic episodes. Patient reports has had his pacemaker for 8 years and no issues. No chest pain or shortness of breath. States episodes last for a long time. Patient no longer takes anxiety medication. No fever or chills.. Historical: - Allergies: 06:34 PENICILLINS; cp4 - PMHx: 06:34 Anxiety; Diverticulitis; GERD; grave's disease (Unknown); High Cholesterol; Sleep cp4 Apnea; Thyroid problem; TIA; X2; - PSHx: 06:34 hernia repair; pacemaker; cp4 - Immunization history:: Adult Immunizations up to date. - Infectious Disease History:: Denies. - Social history:: Smoking status: Patient denies any tobacco usage or history of. - Family history:: not pertinent. - Hospitalizations: : No recent hospitalization is reported. ROS: 07:25 Constitutional: Negative for fever, chills, and weight loss, Neck: Negative for injury, rn pain, and swelling, Cardiovascular: Negative for chest pain, palpitations, and edema, Respiratory: Negative for shortness of breath, cough, wheezing, and pleuritic chest pain, Abdomen/GI: Negative for abdominal pain, nausea, vomiting, diarrhea, and constipation, Back: Negative for injury and pain, MS/Extremity: Negative for injury and deformity, Skin: Negative for injury, rash, and discoloration, Neuro: Negative for headache, weakness, numbness, tingling, and seizure, Exam: 07:25 Constitutional: This is a well developed, well nourished patient who is awake, alert, rn and in no acute distress. Head/Face: Normocephalic, atraumatic. Cardiovascular: Regular rate and rhythm. No pulse deficits. Respiratory: No increased work of breathing, no retractions or nasal flaring. Abdomen/GI: Soft, non-tender MS/ Extremity: Pulses equal, no cyanosis. Neuro: Awake and alert, GCS 15 08:12 ECG was reviewed by the Attending Physician. rn Vital Signs: 06:33 BP 136 / 85; Pulse 70; Resp 18; Temp 98.2; Pulse Ox 99% ; Weight 79.38 kg; Height 5 ft. cp4 8 in. ; Pain 0/10; 06:43 BP 134 / 92; Pulse 60; Resp 16; Pulse Ox 99% ; kt5 07:00 BP 133 / 79; Pulse 61; Resp 16; Pulse Ox 99% on R/A; db 08:00 BP 125 / 71; Pulse 60; Resp 16; Pulse Ox 97% on R/A; db 09:00 BP 109 / 79; Pulse 60; Resp 16; Pulse Ox 99% on R/A; db 09:30 BP 105 / 93; Pulse 60; Resp 14; Pulse Ox 100% ; db 06:33 Body Mass Index 26.61 (79.38 kg, 172.72 cm) cp4 06:33 Pain Scale: Adult cp4 MDM: 06:38 Medical Screening Exam initiated tt7 07:04 Transition of care: Care assumed from Godfrey Manriquez DO. rn 07:25 ED course: Patient states episodes happen more when he lays flat. I laid him flat in rn the room and no abnormal activity on air sampling and monitoring. Symptoms not reproduced. Patient states feels much better after lorazepam given prior to my arrival.. 07:50 Independent interpretation of the following test(s) in the Emergency Department sports management internship monitor: rate is 62 beats/min, Rhythm is normal sinus rhythm, regular, with no ectopy, Interpretation: normal rate, normal rhythm. 08:09 Independent interpretation of the following test(s) in the Emergency Department EKG: rn See my EKG interpretation above X-Ray: My interpretation is Chest x-ray images negative for pneumonia or pneumothorax per my interpretation. 08:51 ED course: Patient still pending chest x-ray read, chest x-ray obtained 2 hours ago, rn contacted radiology department to investigate delay.. 09:22 External Records Reviewed: Outpatient record: Pacemaker interrogation record faxed over rn to our facility, reviewed report, summary of report is that pacemaker is functioning as programmed. Patient has episodes of PVCs but nothing recorded to explain last night and this morning's symptoms.. 09:33 Differential diagnosis: Anxiety, pacemaker malfunction, viral illness, pneumonia. Data rn reviewed: vital signs, nurses notes, lab test result(s), EKG, radiologic studies, plain films, and as a result, I will discharge patient. Care significantly affected by the following chronic conditions: Hypertension, Sinus node dysfunction. Counseling: I had a detailed discussion with the patient and/or guardian regarding the historical points, exam findings, and any diagnostic results supporting the discharge/admit diagnosis, lab results, radiology results, the need for outpatient follow up, to return to the emergency department if symptoms worsen or persist or if there are any questions or concerns that arise at home. Response to treatment: the patient's symptoms have markedly improved after treatment, Symptoms resolved after Ativan treatment., and as a result, I will discharge patient. Special discussion: I discussed with the patient/guardian in detail that at this point there is no indication for admission to the hospital. It is understood, however, that if the symptoms persist or worsen the patient needs to return immediately for re-evaluation. Based on the history and exam findings, there is no indication for further emergent testing or inpatient evaluation. I discussed with the patient/guardian the need to see the plant utilities engineer for further evaluation of the symptoms. I discussed with the patient/guardian the need to see the primary care provider for further evaluation of the symptoms. 08/03 06:38 Order name: Basic Metabolic Panel; Complete Time: 09:33 7 08/03 06:38 Order name: CBC with Diff; Complete Time: 07:52 08/03 06:38 Order name: Troponin HS; Complete Time: :33 7 08/03 06:38 Order name: XRAY Chest (1 view); Complete Time: 09:14 08/03 06:38 Order name: Cardiac monitoring; Complete Time: 06:48 08/03 06:38 Order name: EKG - Nurse/Tech; Complete Time: 06:48 tt7 08/03 06:38 Order name: IV Saline Lock; Complete Time: 06:48 tt7 08/03 06:38 Order name: Labs collected and sent; Complete Time: 06:48 tt7 08/03 06:38 Order name: O2 Per Protocol; Complete Time: 06:48 tt7 08/03 06:38 Order name: O2 Sat Monitoring; Complete Time: 06:48 tt08/03 06:38 Order name: Interrogate Pacemaker; Complete Time: 08:53 tt7 EC:12 Rate is 60 beats/min. Rhythm is regular. QRS [place] is Normal. QRS interval is normal. QT rn interval is normal. No Q waves. T waves are Normal. No ST changes noted. Clinical impression: Paced rhythm. Interpreted by me. Reviewed by me. Administered Medications: 07:01 Drug: LORazepam PO 0.5 mg PO once Route: PO; kt5 10:04 Follow up: Response: No adverse reaction db Disposition Summary: 08/03/25 09:34 Discharge Ordered Notes: Location: Home rn Problem: an ongoing problem rn Symptoms: have improved rn Condition: Stable rn Diagnosis - Anxiety disorder, unspecified rn - Presence of cardiac pacemaker rn Followup: rn - With: Private Physician - When: As needed - Reason: Recheck today's complaints, Re-evaluation by your physician Discharge Instructions: - Discharge Summary Sheet rn - Managing Anxiety, Adult rn Forms: - Medication Reconciliation Form rn - Antibiotic fashion journalist - Prescription Opioid Use rn - Patient Portal Instructions rn - Leadership Thank You Letter rn Prescriptions: - Ativan 0.5 mg Oral tablet - take 1 tablet ORAL route every 8-12 hours As needed For severe anxiety; 7 rn tablet; Refills: 0, Product Selection Permitted Signatures: Dispatcher [employer] EDMS Geovany Elmore MD MD rn Potter, Christina cp4 Kindra Tuttle RN RN kt5 Godfrey Manriquez DO DO tt7 Isis Gibson RN db Corrections: (The following items were deleted from the chart) 06:39 06:38 BASIC METABOLIC PANEL+C.LAB.BRZ ordered. EDMS EDMS 06:39 06:38 CBC+H.LAB.BRZ ordered. EDMS EDMS 06:39 06:38 Troponin High Sensitivity+C.LAB.BRZ ordered. EDMS EDMS 06:39 06:39 Chest Single View+RAD.RAD.BRZ ordered. EDMS EDMS
--- NOTE | 2025-08-03 09:35 | ER ---
Nurse's Notes [facility] Name: Shyann Hardin Age: 74 yrs Sex: Male : 1950 Arrival Date: 08/03/2025 Time: 06:21 Bed 13 Private MD: Diagnosis: Anxiety disorder, unspecified;Presence of cardiac pacemaker Presentation: 08/03 06:33 Chief complaint: Patient states: he feels anxious and the last time he felt like this cp4 he had an issue with his pacemaker. Coronavirus screen: Client denies travel out of the [place] in the last 14 days. At this time, the client does not indicate any symptoms associated with coronavirus-19. Ebola Screen: Patient negative for fever greater than or equal to 101.5 degrees Fahrenheit, and additional compatible Ebola Virus Disease symptoms Patient denies exposure to infectious person. Patient denies travel to an Ebola-affected area in the 21 days before illness onset. No symptoms or risks identified at this time. Initial Sepsis Screen: Does the patient meet any 2 criteria? No. Patient's initial sepsis screen is negative. Does the patient have a suspected source of infection? No. Patient's initial sepsis screen is negative. Risk Assessment: Do you want to hurt yourself or someone else? Patient reports no desire to harm self or others. Onset of symptoms was August 02, 2025. 06:33 Method Of Arrival: Ambulatory cp4 06:33 Acuity: AIRAM 3 cp4 Triage Assessment: 06:34 General: Appears in no apparent distress. uncomfortable, Behavior is calm, cooperative, cp4 appropriate for age. Pain: Denies pain. Historical: - Allergies: 06:34 PENICILLINS; cp4 - PMHx: 06:34 Anxiety; Diverticulitis; GERD; grave's disease (Unknown); High Cholesterol; Sleep cp4 Apnea; Thyroid problem; TIA; X2; - PSHx: 06:34 hernia repair; pacemaker; cp4 - Immunization history:: Adult Immunizations up to date. - Infectious Disease History:: Denies. - Social history:: Smoking status: Patient denies any tobacco usage or history of. - Family history:: not pertinent. - Hospitalizations: : No recent hospitalization is reported. Screenin:43 [facility] ED Fall Risk Assessment (Adult) History of falling in the last 3 months, kt5 including since admission No falls in past 3 months (0 pts) Confusion or Disorientation No (0 pts) Intoxicated or Sedated No (0 pts) Impaired Gait No (0 pts) Mobility Assist Device Used No (0 pt) Altered Elimination No (0 pt) Score/Fall Risk Level 0 - 2 = Low Risk Oriented to surroundings, Maintained a safe environment. Abuse screen: Denies threats or abuse. Nutritional screening: No deficits noted. Tuberculosis screening: No symptoms or risk factors identified. Assessment: 06:43 General: Appears in no apparent distress. comfortable, Behavior is calm, cooperative, kt5 appropriate for age. Pain: Denies pain. Neuro: No deficits noted. Berry Agitation-Sedation Scale (RASS): 0 - Alert and Calm. Cardiovascular: No deficits noted. Heart tones S1 S2 present Capillary refill < 3 seconds Clubbing of nail beds is absent JVD is absent. Cardiovascular: Reports anxiety when lying back, pt states he felt this way when "1 had to get my pacemaker years ago". Respiratory: Reports shortness of breath at rest Airway is patent Trachea midline Respiratory effort is even, unlabored, Respiratory pattern is regular, symmetrical. GI: No deficits noted. No signs and/or symptoms were reported involving the gastrointestinal system. Abdomen is round non-distended, Bowel sounds present X 4 quads. Abd is soft and non tender X 4 quads. : No deficits noted. No signs and/or symptoms were reported regarding the genitourinary system. EENT: No deficits noted. No signs and/or symptoms were reported regarding the EENT system. Derm: No deficits noted. No signs and/or symptoms reported regarding the dermatologic system. Skin is intact, is healthy with good turgor, Skin is dry, Skin is pink, warm \\T\\ dry. Musculoskeletal: No deficits noted. No signs and/or symptoms reported regarding the musculoskeletal system. 06:59 General: tech at bs for pcxr. kt5 07:06 General: report given to jerod marte, all questions answered. kt5 07:15 Reassessment: Patient appears in no apparent distress at this time. Patient and/or db family updated on plan of care and expected duration. Pain level reassessed. Patient is alert, oriented x 3, equal unlabored respirations, skin warm/dry/pink. General: Appears in no apparent distress. comfortable, Behavior is calm, cooperative. 07:49 Reassessment: ATTEMPTED TO INTERROGATE PACEMAKER. INTERROGATOR IN ER NOT WORKING. db NOTIFIED FIRE OFFICER TO BRING ONE FROM CARDIOLOGY. 08:15 Reassessment: Patient appears in no apparent distress at this time. Patient and/or db family updated on plan of care and expected duration. Pain level reassessed. Patient is alert, oriented x 3, equal unlabored respirations, skin warm/dry/pink. General: Appears in no apparent distress. comfortable. 08:35 Reassessment: CALLED [employer] FOR PACEMAKER INTERROGATION REPORT. STATES WILL FAX TO db ED. REPORTS PACEMAKER WORKING IT SHOULD. LAST VT 07/25. LAST SVT 07/12. 09:30 Reassessment: Patient appears in no apparent distress at this time. Patient and/or db family updated on plan of care and expected duration. Pain level reassessed. Patient is alert, oriented x 3, equal unlabored respirations, skin warm/dry/pink. Vital Signs: 06:33 BP 136 / 85; Pulse 70; Resp 18; Temp 98.2; Pulse Ox 99% ; Weight 79.38 kg; Height 5 ft. cp4 8 in. ; Pain 0/10; 06:43 BP 134 / 92; Pulse 60; Resp 16; Pulse Ox 99% ; kt5 07:00 BP 133 / 79; Pulse 61; Resp 16; Pulse Ox 99% on R/A; db 08:00 BP 125 / 71; Pulse 60; Resp 16; Pulse Ox 97% on R/A; db 09:00 BP 109 / 79; Pulse 60; Resp 16; Pulse Ox 99% on R/A; db 09:30 BP 105 / 93; Pulse 60; Resp 14; Pulse Ox 100% ; db 06:33 Body Mass Index 26.61 (79.38 kg, 172.72 cm) cp4 06:33 Pain Scale: Adult cp4 ED Course: 06:25 Patient arrived in ED. mr 06:32 Godfrey Manriquez DO is Attending Physician. tt7 06:34 Triage completed. cp4 06:34 Arm band placed on right wrist. Patient placed in waiting room. cp4 06:42 Kindra Tuttle, RN is Primary Nurse. kt5 06:43 Bed in low position. Call light in reach. Side rails up X 1. Client placed on kt5 continuous cardiac and pulse oximetry monitoring. NIBP monitoring applied. precision lens centerer and edger on. Door closed. Noise minimized. Warm blanket given. Pillow given. 06:43 Inserted saline lock: 18 gauge in right forearm, using aseptic technique. Blood kt5 collected. Flushed with 10 mL NS. 06:48 Basic Metabolic Panel Sent. kt5 06:48 CBC with Diff Sent. kt5 06:48 Troponin HS Sent. kt5 07:01 XRAY Chest (1 view) In Process Unspecified. EDMS 07:04 Attending Physician role handed off by Godfrey Manriquez DO rn 07:04 Geovany Elmore MD is Attending Physician. rn 09:03 Lab(s) recollected, by me, sent to lab. db 10:01 Provided Education on: DISCHARGE AND FOLLOWUP. db 10:01 No provider procedures requiring assistance completed. IV discontinued, intact, db bleeding controlled, No redness/swelling at site. Administered Medications: 07:01 Drug: LORazepam PO 0.5 mg PO once Route: PO; kt5 10:04 Follow up: Response: No adverse reaction db Medication: 06:43 VIS not applicable for this client. kt5 Outcome: 09:34 Discharge ordered by . rn 10:01 Discharged to home ambulatory, db 10:01 Condition: stable 10:01 Discharge instructions given to patient, Instructed on discharge instructions, follow up and referral plans. Prescriptions given X 1, 10:05 Patient left the ED. db Signatures: Dispatcher [employer] [facility] Keisha Fernandes, Reg Reg mr Geovany Elmore MD MD rn Benton, Danielle RN RN Clari Grayson cp4 Kindra Tuttle RN RN kt5 Godfrey Manriquez DO DO tt7
[2025-08-03 10:22] VITALS: TEMP 98.2
[2025-08-03 10:30] VITALS: BP 105/93; O2SAT 100
== END 2025-08-03 10:05 | disposition home or self-care (01) ==
LOC: ER 06:21
DX: F41.9 Anxiety disorder, unspecified (principal); Z95.0 Presence of cardiac pacemaker; Z88.0 Allergy status to penicillin
CPT/HCPCS: 36415; 71045; 80048; 84484; 85025; 93005; 99284